=== PATIENT | female | born 1940 | race Caucasian/White ===

== ENCOUNTER 2016-10-04 08:27 | Inpatient (IN) | payer MEDICARE ==
[~2016-10-04] VITALS: Ht 167.6 cm; Wt 63.5 kg
[2016-10-04] VITALS (26 sets, daily range): BP systolic 76–117; BP diastolic 37–84
[2016-10-04 08:40] LABS: HCO3 ABG 7 mmol/L (21-28); PO2 ABG 137 mmHg (65-108); SAT O2 ABG 97 % (92-99)
[2016-10-04 08:42] LABS: PCO2 ABG 19 mmHg (35-46)
[2016-10-04 08:48] LABS: BASO % 0 % (0-3); EOS % 1 % (0-3); HEMATOCRIT 35.1 % (36.0-47.0); HEMOGLOBIN 11.2 g/dL (12.0-15.5); LYMPH # 0.8 x10^3/uL (1.0-4.8); LYMPH % 93 % (24-48); MEAN CORPUSCULAR HEMOGLOBIN 29 pg (25-35); MEAN CORPUSCULAR HGB CONC 32 g/dL (31-37); MEAN CORPUSCULAR VOLUME 92 fL (79-100); MONO % 1 % (0-9); NEUT % 5 % (31-73); PLATELET COUNT 47 x10^3/uL (140-400); RED CELL DISTRIBUTION WIDTH 22.8 % (11.5-14.5)
[2016-10-04 08:52] LABS: WHITE BLOOD COUNT 0.8 x10^3/uL (4.0-11.0)
[2016-10-04 08:56] LABS: CALCIUM 7.3 mg/dL (8.5-10.1); CREATININE 2.9 mg/dL (0.6-1.0); GFR 15.7; POTASSIUM 3.8 mmol/L (3.5-5.1)
--- NOTE | 2016-10-04 08:58 | PHYS DOC ---
Adult General Chief Complaint Chief Complaint: ALTERED MENTAL STATUS HPI HPI Patient is a 76 year old female who presents with altered mental status and diarrhea. According to family she has a history of stage IV lung cancer diagnosed in July and his rent through 3 rounds of chemotherapy. Her last chemotherapy was approximately a week ago. She had some constipation over the last several days and was given MiraLAX partially 2 days ago and the last night started having diarrhea. They gave her Imodium and this morning she had stool in her bed they got her up to take her to the bathroom when she became lethargic. They put her on the toilet and she was unresponsive. EMS was called. They found the patient to be unresponsive and put her on 15 L. She was brought to the ER with tachycardia and tachypnea. Family she is a DNR and does not want to be intubated or have chest compressions performed. She has a past medical history of hypertension, dyslipidemia, lung cancer recently diagnosed with metastatic and vertebral plasty. Review of Systems Review of Systems Able to obtain Current Medications Current Medications Current Medications Medications (Trade) Dose Ordered Sig/Judy Start Time Stop Time Status Last Admin Dose Admin Dextrose/Sodium Chloride (Iv D5% - /2 NS) 1,000 ml @ 125 mls/hr 1X ONCE 10/04/16 12:30 10/04/16 20:29 10/04/16 12:57 125 MLS/HR Fentanyl Citrate (Fentanyl 2ml Vial) 25 mcg 1X ONCE 10/04/16 13:15 10/04/16 13:16 DC 10/04/16 13:06 25 MCG Meropenem 1 gm/ Sodium Chloride 100 ml @ 200 mls/hr 1X ONCE 10/04/16 09:15 10/04/16 09:44 DC 10/04/16 09:14 200 MLS/HR Norepinephrine Bitartrate 8 mg/ Sodium Chloride 258 ml @ 0 mls/hr 1X ONCE 10/04/16 09:00 10/04/16 09:03 DC 10/04/16 09:02 1.9 MLS/HR Sodium Chloride 1,000 ml @ 1,000 mls/hr 1X ONCE 10/04/16 09:15 10/04/16 10:14 DC 10/04/16 08:58 1,000 MLS/HR Allergies Allergies Allergies Coded Allergies Type Severity Reaction Last Updated Verified Penicillins Allergy Intermediate 10/04/16 Yes Sulfa (Sulfonamide Antibiotics) Allergy Intermediate 10/04/16 Yes cholestyramine Allergy Intermediate 10/04/16 Yes morphine Allergy Intermediate 10/04/16 Yes atorvastatin Adverse Reaction Mild UPSETS STOMACH 10/04/16 Yes rosuvastatin Adverse Reaction Mild UPSETS STOMACH 10/04/16 Yes Physical Exam Physical Exam Constitutional: Well developed, well nourished, unresponsive, mild acute distress [] HENT: Normocephalic, atraumatic, bilateral external ears normal, oropharynx moist, no oral exudates, nose normal. [] Eyes: PERRLA, EOMI, conjunctiva normal, no discharge. [] Neck: no stridor. [] Cardiovascular: Tachycardic with regular rhythm, no murmur [] Lungs & Thorax: Bilateral breath sounds clear to auscultation [] Abdomen: Bowel sounds normal, soft, no tenderness, no masses, no pulsatile masses. [] Skin: Warm, dry, no erythema, no rash. [] Back: No tenderness, no CVA tenderness. [] Extremities: No tenderness, no cyanosis, no clubbing, ROM intact, no edema. [] Neurologic: unresponsive Current Patient Data Vital Signs Vital Signs Date Time Temp Pulse Resp B/P Pulse Ox O2 Delivery O2 Flow Rate FiO2 10/04/16 12:15 120 29 106/55 100 Venturi Mask 15 10/04/16 08:27 97.9 97.9 Lab Values Laboratory Tests Test 10/04/16 08:35 10/04/16 09:00 10/04/16 11:50 White Blood Count 0.8x10^3/uL (4.0-11.0) *L Red Blood Count 3.80x10^6/uL (3.50-5.40) Hemoglobin 11.2g/dL (12.0-15.5) L Hematocrit 35.1% (36.0-47.0) L Mean Corpuscular Volume 92fL (79-100) Mean Corpuscular Hemoglobin 29pg (25-35) Mean Corpuscular Hemoglobin Concent 32g/dL (31-37) Red Cell Distribution Width 22.8% (11.5-14.5) H Platelet Count 47x10^3/uL (140-400) L Neutrophils (%) (Auto) 5% (31-73) L Lymphocytes (%) (Auto) 93% (24-48) H Monocytes (%) (Auto) 1% (0-9) Eosinophils (%) (Auto) 1% (0-3) Basophils (%) (Auto) 0% (0-3) Neutrophils # (Auto) 0.0x10^3uL (1.8-7.7) L Lymphocytes # (Auto) 0.8x10^3/uL (1.0-4.8) L Monocytes # (Auto) 0.0x10^3/uL (0.0-1.1) Eosinophils # (Auto) 0.0x10^3/uL (0.0-0.7) Basophils # (Auto) 0.0x10^3/uL (0.0-0.2) Prothrombin Time 15.9SEC (11.7-14.0) H Prothrombin Time INR 1.4 (0.8-1.1) H O2 Saturation 97% (92-99) Arterial Blood pH 7.20 (7.35-7.45) *L Arterial Blood pCO2 at Patient Temp 19mmHg (35-46) *L Arterial Blood pO2 at Patient Temp 137mmHg (65-108) H Arterial Blood HCO3 7mmol/L (21-28) L Arterial Blood Base Excess -19mmol/L (-3-3) L FiO2 100.0 Sodium Level 144mmol/L (136-145) Potassium Level 3.8mmol/L (3.5-5.1) Chloride Level 104mmol/L (98-107) Carbon Dioxide Level 12mmol/L (21-32) L Anion Gap 28 (6-14) H Blood Urea Nitrogen 67mg/dL (7-20) H Creatinine 2.9mg/dL (0.6-1.0) H Estimated GFR (Cockcroft-Gault) 15.7 Glucose Level 137mg/dL (70-99) H Lactic Acid Level 13.2mmol/L (0.4-2.0) *H 3.7mmol/L (0.4-2.0) H Calcium Level 7.3mg/dL (8.5-10.1) L Magnesium Level 1.2mg/dL (1.8-2.4) L Total Bilirubin 0.5mg/dL (0.2-1.0) Direct Bilirubin 0.2mg/dL (0.0-0.2) Aspartate Amino Transferase (AST) 74U/L (15-37) H Alanine Aminotransferase (ALT) 82U/L (14-59) H Alkaline Phosphatase 175U/L (46-116) H Creatine Kinase 54U/L (26-192) Creatine Kinase MB (Mass) 0.9ng/mL (0.0-3.6) Creatine Kinase MB Relative Index % (0-4) Troponin I Quantitative 0.095ng/mL (0.000-0.055) UG-Cas-P-Type Natriuretic Peptide 9753pg/mL (0-449) H Total Protein 5.4g/dL (6.4-8.2) L Albumin 2.7g/dL (3.4-5.0) L Lipase 167U/L (73-393) Thyroid Stimulating Hormone (TSH) 13.741uIU/mL (0.358-3.74) H Influenza Type A Antigen Negative (NEGATIVE) Influenza Type B Antigen Negative (NEGATIVE) Laboratory Tests 10/04/16 08:35 Laboratory Tests 10/04/16 08:35 EKG EKG EKG shows sinus tachycardia with incomplete right bundle-branch block, rate of 119 bpm, no ST elevations or T-wave inversions appreciated, as interpreted by me. Radiology/Procedures Radiology/Procedures [facility] [address] [place] [place] [address] IMAGING REPORT Signed PATIENT: RUTH ANN MARLOW ACCOUNT: [id number] : 1940 LOCATION: ER AGE: 76 SEX: F EXAM STATUS: PRE ER ORD. PHYSICIAN: LESTER HEBERT MD REASON: AMS PROCEDURE: PORTABLE CHEST 1V Portable chest, 10/04/2016: History: Altered mental status A right Port-A-Cath extends to the level of the atriocaval junction. The heart size and pulmonary vascularity are normal. There is calcific plaquing of the aorta. There are mild streaky basilar opacities, more so on the left, suggesting atelectasis and/or scarring. No pleural fluid or pneumothorax is evident. There are vertebral compression fractures at T12 and L1 containing dense material compatible with vertebroplasty cement. IMPRESSION: 1. A right Port-A-Cath is in satisfactory position. 2. Mild bibasilar linear atelectasis and/or scarring, left greater than right. DICTATED and SIGNED BY: TEMITOPE HAMPTON MD DATE: 10/04/16 0856 CC: LESTER HEBERT MD ~ Impressions: Sepsis Hypotension Neutropenia Metastatic lung cancer Course & Med Decision Making Course & Med Decision Making Pertinent Labs and Imaging studies reviewed. (See chart for details) She presented with altered mental status and hypotension and tachypnea. She received 2 L normal saline and Levaquin fed was started to titrate her blood pressure up with a map greater than 60. CT head and chest x-ray did not show any acute abnormalities. She does have a severe lactic acidosis that is metabolic in nature. Family states that her insurance does not cover here I did speak with [facility] admission were she's been hospitalized before and her insurance is accepted at negative except the patient however he did have any ICU beds available. Patient's being admitted to Dr. Rainey at this time in critical condition in the ICU with the understanding of being transferred to [facility] within a bed becomes available. Family is agreeable to this plan. The patient is DNR based on conversations that the brother and sister had with their mom recently. 75 minutes of critical care time was used on this patient excluding procedures. Dragon Disclaimer Dragon Disclaimer This electronic medical record was generated, in whole or in part, using a voice recognition dictation system. Departure Departure Disposition: ADMITTED INPATIENT Admitting Physician: Vijay Go Condition: GUARDED LESTER HEBERT MD Oct 04, 2016 08:58
[2016-10-04 09:00] LABS: INR 1.4 (0.8-1.1); PROTHROMBIN TIME PATIENT 15.9 SEC (11.7-14.0)
[2016-10-04] MEDS ORDERED: NS IV ONE (09:00)
[2016-10-04] MEDS ORDERED: NOREPINEPHRINE IV ONE (09:00)
[2016-10-04] MEDS ORDERED: NOREPINEPHRINE VIAL 8 MG in IV NORMAL SALINE 250ML 250 ML IV ONE (09:00)
--- NOTE | 2016-10-04 09:01 | RAD ---
Portable chest, 10/04/2016: History: Altered mental status A right Port-A-Cath extends to the level of the atriocaval junction. The heart size and pulmonary vascularity are normal. There is calcific plaquing of the aorta. There are mild streaky basilar opacities, more so on the left, suggesting atelectasis and/or scarring. No pleural fluid or pneumothorax is evident. There are vertebral compression fractures at T12 and L1 containing dense material compatible with vertebroplasty cement. IMPRESSION: 1. A right Port-A-Cath is in satisfactory position. 2. Mild bibasilar linear atelectasis and/or scarring, left greater than right.
[2016-10-04 09:03] LABS: ALBUMIN 2.7 g/dL (3.4-5.0); DIRECT BILIRUBIN 0.2 mg/dL (0.0-0.2); MAGNESIUM 1.2 mg/dL (1.8-2.4); TOTAL BILIRUBIN 0.5 mg/dL (0.2-1.0); TOTAL PROTEIN 5.4 g/dL (6.4-8.2)
[2016-10-04 09:09] LABS: CKMB MASS 0.9 ng/mL (0.0-3.6); CREATINE KINASE 54 U/L (26-192)
[2016-10-04] MEDS ORDERED: IV NORMAL SALINE 1000ML BAG 1,000 ML IV SCH (09:15)
[2016-10-04] MEDS ORDERED: MEROPENEM 1 GM in IV NORMAL SALINE 100ML 100 ML IV ONE (09:15)
[2016-10-04] MEDS ORDERED: IV NORMAL SALINE 1000ML BAG 1,000 ML IV ONE ×2 (09:15→16:15)
[2016-10-04 09:39] LABS: OBC FLU VALID
--- NOTE | 2016-10-04 10:01 | RAD ---
PQRS Compliance Statement: One or more of the following individualized dose reduction techniques were utilized for this examination: 1. Automated exposure control 2. Adjustment of the mA and/or kV according to patient size 3. Use of iterative reconstruction technique CT of the head without contrast, 10/04/2016: History: Altered mental status The study is partially compromised by patient motion artifact. The ventricles are within normal limits in size. There is no shift of the midline structures. There is no evidence of acute intracranial hemorrhage or mass effect. There is calcific plaquing of the distal internal carotid and vertebral arteries. IMPRESSION: No acute intracranial abnormality is detected.
--- NOTE | 2016-10-04 10:51 | ACF ---
Admission Forms Criteria MENTAL STATUS CHANGE Clinical Indications for Inpatient Care (Place 'X' for any and all applicable criteria): Ongoing inpatient care may be needed for ANY ONE of the following(1)(2)(3)(5)(6) : [ ]I. Suspected serious etiology (eg, medical disorder, SHANK STITCHER event) of mental status change [ ]II. Danger to self or others not manageable at lower level of care [ ]III. Grave disability (eg, inability to perform self care necessary at lower level of care) [ ]IV. Agitation or inappropriate behavior interfering with care for primary condition (eg, attempting to discontinue lines or drains prematurely, unable to cooperate with respiratory care) [ ]V. Delirium [A] [D][E] as described by ANY ONE of the following(26): [ ]a) Delirium due to alcohol or sedative [F] withdrawal [ ]b) Delirium of uncertain etiology that has not responded to appropriate empiric treatment [ ]c) Delirium that prevents performance of a life-sustaining function (eg, feeding or hydrating oneself) [ ]. General contraindications and/or Inappropriate clinical situations for Observational Care in patients with Mental Status Change, when ANY ONE of the following is required: [ ]a) Prediction of prolongation of LOS based on ANY ONE of the following may be considered as a contraindication for observational care 2, 3, 4, 5, 6, 7, 8, 9, 10, 11 [ ]i) Age > 65 yrs. [ ]ii) Patient arriving by ambulance [ ]iii) Patient with high acuity [ ]iv) Patient requiring vital sign monitoring [ ]v) Patient on IV medication [ ]b) Systolic blood pressures 180mmHg 3,12 [ ]c) Patient with altered mental status including delirium and other alteration of consciousness, (3) [ ]d) Patient whose discharge disposition will be to a [facility] home or rehabilitation home should not be managed in Emergency Department Observation Unit. CMS rule requires 3 days hospital stay before such placement.3,13 [ ]e) Patient with failure to thrive due to broad array of etiologies 3,16,17 [ ]f) Inability to ambulate 3,14 Extended stay beyond goal length of stay for the primary condition may be needed until ALL of the following are present(3)(5): [ ]a) Underlying medical etiology of mental status change is absent, or has been established and adequately treated [ ]b) Danger to self or others is absent or manageable at lower level of care. [ ]c) Behavior crisis management, including physical or chemical restraints, is not required or available at lower level of car [ ]d) Substance or alcohol withdrawal is absent or manageable at lower level of care. [ ]e) Behavioral symptoms (eg, agitation, somnolence, inappropriate behavior) are absent, or are manageable at lower level of care. The original [facility] [employer] content created by [facility] has been revised. The portions of the content which have been revised are identified through the use of italic text or in bold, and [email or web address] has neither reviewed nor approved the modified material. All other unmodified content is copyright [facility]. Please see references footnoted in the original [facility] edition 2016 DEANNA SOLER Oct 04, 2016 10:51
--- NOTE | 2016-10-04 11:00 | EKG ---
[facility] [address] [place] [address] Test Date: 2016-10-04 Test Time: 09:10:26 Pat Name: RUTH ANN MARLOW Department: Room: Gender: F Nonprofit Fundraiser: : 1940 Requested By: LESTER HEBERT Order Number: [id number] Reading MD: Rangel Veronica Measurements Intervals Umpire Rate: 119 P: 47 UT: 106 QRS: 36 QRSD: 122 T: 54 QT: 346 QTc: 494 Interpretive Statements SINUS TACHYCARDIA INCOMPLETE RIGHT BUNDLE BRANCH BLOCK RVH WITH REPOLARIZATION ABNORMALITY NONSPECIFIC ST-T WAVE CHANGES. RI6.01 Unconfirmed report No previous ECG available for comparison Electronically Signed On 10-09-2016 13:34:12 LACING STRING CUTTER by Rangel Veronica
[2016-10-04] MEDS ORDERED: IV DEXTROSE 5 %-0.45 % NACL 1,000 ML IV ONE (12:30)
[2016-10-04] MEDS ORDERED: FENTANYL PF 100 MCG/2 ML VIAL. IV ONE (13:15)
[2016-10-04] MEDS ORDERED: ONDANSETRON PF 4 MG/2 ML VIAL. ONE (14:12)
[2016-10-04] MEDS: NOREPINEPHRINE VIAL 8 MG in IV NORMAL SALINE 250ML 250 ML IV PRN (15:10)
[2016-10-04] MEDS ORDERED: ORPH100T PO (15:42)
[2016-10-04] MEDS ORDERED: ALLO300T PO (15:42)
[2016-10-04] MEDS ORDERED: ALPR0.5T PO (15:42)
[2016-10-04] MEDS ORDERED: TRAM50TA PO (15:42)
[2016-10-04] MEDS ORDERED: MIRT15TA3 PO (15:42)
[2016-10-04] MEDS ORDERED: PANT40TA3 PO (15:42)
[2016-10-04] MEDS ORDERED: ASPI81TA44 PO (15:43)
[2016-10-04] MEDS: ONDANSETRON PF 4 MG/2 ML VIAL. IV PRN ×2 (15:59→22:02)
[2016-10-04 16:28] LABS: BILIRUBIN,URINE NEGATIVE (NEG); GLUCOSE,URINE NEGATIVE (NEG); NITRITE,URINE NEGATIVE (NEG); PH,URINE 5.5; PROTEIN,URINE 30 mg/dL (NEG-TRACE); UROBILINOGEN,URINE 0.2 mg/dL (0.2 mg/dL)
[2016-10-04] MEDS ORDERED: MAGNESIUM SULFATE 4GM 100 ML IV ONE (16:30)
--- NOTE | 2016-10-04 16:33 | PDOC ---
Provider Note Provider Note Onc consult dictated- [id number] Extensive SCLC with osseous mets s/p Cycle 3 palliative cisplatin/ etoposide . Positive response on scans after Cycle 2 but poor tolerance to chemo. Neutropenic fever, severe sepsis Plan: - Pt out of network here, has bed at [facility], planning to transfer [facility]. - Defer goals of care discussion to her oncologist, Dr. Flynn, who will round on her there - Continue IVF, abx, supportive care. - Added granix - Transfuse for hgb < 7, plt <10 Dr. Flynn aware. PEÑA BATISTA DO Oct 04, 2016 16:32
--- NOTE | 2016-10-04 16:36 | PDOC2 ---
CARDIAC CONSULT DATE OF CONSULT Date of Consult DATE: 10/04/16 TIME: 16:24 REASON FOR CONSULT Reason for Consult: CHF REFERRING PHYSICIAN Referring Physician: Donavan SOURCE Source: Caregiver (son), Chart review HISTORY OF PRESENT ILLNESS HISTORY OF PRESENT ILLNESS This is a 76 yo female admitted for noted altered mental status. Upon admission she has been noted with respiratory failure, renals failure, sepsis and hypotension. She is currently lethargic and shivering. She lives at home with her daughter and with current decreased mental state she is not able to provide with symptoms details. However, her son is in the room and provided me with the events that transpired. Last week she had her 3rd dose of chemo for her SCLC stage 4 and actually was noted that her CA is shrinking. This was identified accidentally via treatement of back pain via vertebroplasty in Jul 2016 and was noted with metastatic lung CA. She has not been routinely going to any physician prior to the discovery of her CA. No prior cardiac workup, no hx of CAD, CVA, VTE. The chemo drug is unknown at this time. No life expectancy was discussed. She has been noted with SOA in the last few days but no significant distress till today. She has been anorexic, no appetite, poor po hydrations, and has been having diarrhea. She has been noted with respiratory distress upon EMS arrival and unresponsive. No noted symptoms of chest pain nor palpitations. To note per her son she has been healthy and active prior to her discovery of CA. PAST MEDICAL HISTORY Cardiovascular: HTN, Hyperlipidemia Pulmonary: Other (Stage 4 lung CA with mets with chemo diagnosed 07/2016) CENTRAL NERVOUS SYSTEM: Other (No pertinent history) GI: GERD Psych: Anxiety Musculoskeletal: Osteoarthritis PAST SURGICAL HISTORY Past Surgical History: Other (right chest portacath; vertebroplasty) FAMILY HISTORY Family History: Coronary Artery Disease (father) SOCIAL HISTORY Smoke: No ALCOHOL: none Drugs: None Lives: with Family CURRENT MEDICATIONS CURRENT MEDICATIONS Current Medications Medications (Trade) Dose Ordered Sig/Judy Route PRN Reason Start Time Stop Time Status Last Admin Dose Admin Sodium Chloride 1,000 ml @ 1,000 mls/hr Q1H IV 10/04/16 09:15 10/04/16 10:14 DC 10/04/16 08:27 Sodium Chloride 1,000 ml @ 1,000 mls/hr 1X ONCE IV 10/04/16 09:15 10/04/16 10:14 DC 10/04/16 08:58 Norepinephrine Bitartrate 8 mg/ Sodium Chloride 258 ml @ 0 mls/hr 1X ONCE IV 10/04/16 09:00 10/04/16 09:03 DC 10/04/16 09:02 Meropenem 1 gm/ Sodium Chloride 100 ml @ 200 mls/hr 1X ONCE IV 10/04/16 09:15 10/04/16 09:44 DC 10/04/16 09:14 Dextrose/Sodium Chloride (Iv D5% - 1/2 NS) 1,000 ml @ 125 mls/hr 1X ONCE IV 10/04/16 12:30 10/04/16 20:29 10/04/16 12:57 Fentanyl Citrate (Fentanyl 2ml Vial) 25 mcg 1X ONCE IV 10/04/16 13:15 10/04/16 13:16 DC 10/04/16 13:06 Ondansetron HCl 4 mg 4 mg PRN Q6HRS PRN IV NAUSEA/VOMITING 10/04/16 15:45 10/04/16 15:59 Sodium Chloride (Iv Sodium Chloride 0.9% 1000ml Bag) 1,000 ml @ 1,000 mls/hr 1X ONCE IV 10/04/16 16:15 10/04/16 17:14 10/04/16 15:59 ALLERGIES ALLERGIES: Coded Allergies: Penicillins (Verified Allergy, Intermediate, 10/04/16) Sulfa (Sulfonamide Antibiotics) (Verified Allergy, Intermediate, 10/04/16) cholestyramine (Verified Allergy, Intermediate, 10/04/16) morphine (Verified Allergy, Intermediate, 10/04/16) atorvastatin (Verified Adverse Reaction, Mild, UPSETS STOMACH, 10/04/16) rosuvastatin (Verified Adverse Reaction, Mild, UPSETS STOMACH, 10/04/16) ROS Review of System unreliable, see HPI PHYSICAL EXAM General: moderate distress (having shivers) HEENT: Atraumatic Lungs: Clear to auscultation Heart: Regular rate (sinus tachycardia), Normal S1, Normal S2, Other (3/6 systolic murmur to LLS border) Abdomen: Soft, No tenderness, Other (rectal tube in place) Extremities: Other (trace LE edema; pale) Skin: No breakdown, No significant lesion Neuro: Sensation intact Psych/Mental Status: Other (lethargic) MUSCULOSKELETAL: Osteoarthritic changes both hands VITALS VITALS Vital Signs Date Time Temp Pulse Resp B/P Pulse Ox O2 Delivery O2 Flow Rate FiO2 10/04/16 15:26 98.5 125 95/52 94 Nasal Cannula 2.0 98.5 10/04/16 12:15 29 LABS Lab: Laboratory Tests Test 10/04/16 08:35 10/04/16 09:00 10/04/16 11:50 10/04/16 15:10 White Blood Count 0.8x10^3/uL (4.0-11.0) Red Blood Count 3.80x10^6/uL (3.50-5.40) Hemoglobin 11.2g/dL (12.0-15.5) Hematocrit 35.1% (36.0-47.0) Mean Corpuscular Volume 92fL (79-100) Mean Corpuscular Hemoglobin 29pg (25-35) Mean Corpuscular Hemoglobin Concent 32g/dL (31-37) Red Cell Distribution Width 22.8% (11.5-14.5) Platelet Count 47x10^3/uL (140-400) Neutrophils (%) (Auto) 5% (31-73) Lymphocytes (%) (Auto) 93% (24-48) Monocytes (%) (Auto) 1% (0-9) Eosinophils (%) (Auto) 1% (0-3) Basophils (%) (Auto) 0% (0-3) Neutrophils # (Auto) 0.0x10^3uL (1.8-7.7) Lymphocytes # (Auto) 0.8x10^3/uL (1.0-4.8) Monocytes # (Auto) 0.0x10^3/uL (0.0-1.1) Eosinophils # (Auto) 0.0x10^3/uL (0.0-0.7) Basophils # (Auto) 0.0x10^3/uL (0.0-0.2) Prothrombin Time 15.9SEC (11.7-14.0) Prothromb Time International Ratio 1.4 (0.8-1.1) O2 Saturation 97% (92-99) Arterial Blood pH 7.20 (7.35-7.45) Arterial Blood pCO2 at Patient Temp 19mmHg (35-46) Arterial Blood pO2 at Patient Temp 137mmHg (65-108) Arterial Blood HCO3 7mmol/L (21-28) Arterial Blood Base Excess -19mmol/L (-3-3) FiO2 100.0 Sodium Level 144mmol/L (136-145) Potassium Level 3.8mmol/L (3.5-5.1) Chloride Level 104mmol/L (98-107) Carbon Dioxide Level 12mmol/L (21-32) Anion Gap 28 (6-14) Blood Urea Nitrogen 67mg/dL (7-20) Creatinine 2.9mg/dL (0.6-1.0) Estimated GFR (Cockcroft-Gault) 15.7 Glucose Level 137mg/dL (70-99) Lactic Acid Level 13.2mmol/L (0.4-2.0) 3.7mmol/L (0.4-2.0) 3.7mmol/L (0.4-2.0) Calcium Level 7.3mg/dL (8.5-10.1) Magnesium Level 1.2mg/dL (1.8-2.4) Total Bilirubin 0.5mg/dL (0.2-1.0) Direct Bilirubin 0.2mg/dL (0.0-0.2) Aspartate Amino Transf (AST/SGOT) 74U/L (15-37) Alanine Aminotransferase (ALT/SGPT) 82U/L (14-59) Alkaline Phosphatase 175U/L (46-116) Creatine Kinase 54U/L (26-192) Creatine Kinase MB (Mass) 0.9ng/mL (0.0-3.6) Creatine Kinase MB Relative Index % (0-4) Troponin I Quantitative 0.095ng/mL (0.000-0.055) 0.463ng/mL (0.000-0.055) JI-Ffh-F-Type Natriuretic Peptide 9753pg/mL (0-449) Total Protein 5.4g/dL (6.4-8.2) Albumin 2.7g/dL (3.4-5.0) Lipase 167U/L (73-393) Thyroid Stimulating Hormone (TSH) 13.741uIU/mL (0.358-3.74) Influenza Type A Antigen Negative (NEGATIVE) Influenza Type B Antigen Negative (NEGATIVE) ASSESSMENT/PLAN ASSESSMENT/PLAN 1. Sepsis: pneumonia? 2. Pancytopenia 3. Acute respiratory failure 4. Hypoxic encephalopathy 5. EPHRAIM: significant volume depletion 6. Stage 4 lung CA with chemotherapy with noted Metastasis: no noted life expectancy 7. Elevated troponin: now at 0.46, suspect demand mediated with above concurrent acute conditions 8. Elevated pro NT BNP: related to above. Clinically no acute CHF. No cephalization/effusion/nor peripheral edema 9. Some form of cardiomyopathy maybe expected which could be chemo induced 9. HTN 9. Hypothyroidism: new? TSH 13 10. Hypomagnesemia 11. Deconditioning/debility 12. Sinus tachycardia: reactive Recommendations 1. Replace Mg. 2. Continue with supportive care 3. TTE if pt remains to be here as plans for her to transfer to [facility] is in process, just waiting for bed. 4. Maintain levo, IV hydration 5. Hold antiHTN meds. Problems: RACHEL RENEE APRN Oct 04, 2016 16:36
[2016-10-04] MEDS: FENTANYL PF 100 MCG/2 ML VIAL. IV PRN ×3 (16:39→22:03)
[2016-10-04 16:44] LABS: BACTERIA,URINE 0 /HPF (0-FEW); RBC,URINE 0 /HPF (0-2); WBC,URINE 0 /HPF (0-4); YEAST,URINE PRESENT /HPF
[2016-10-04] MEDS ORDERED: VANCOMYCIN 1.25 GM in IV NORMAL SALINE 250ML 250 ML IV ONE (17:00)
--- NOTE | 2016-10-04 17:37 | ACF ---
Admission Forms Criteria SEPSIS and OTHER FEBRILE ILLNESS, W/O FOCAL INFECTION Clinical Indications for Admission to Inpatient Care ( Place 'X' for any and all applicable criteria): Admission is indicated for ANY ONE of the following (1)(2)(3)(4): [ ] I. Bacteremia [ ]II. Suspected or identified specific infection requiring hospitalization (eg, meningitis, endocarditis) [ ]III. Hemodynamic instability [X]IV. Altered mental status [ ]V. Failure or unavailability of outpatient antimicrobial treatment [ ]. Hypoxemia [ ]VII. Seizures [ ]VIII. High-risk febrile neutropenia [ ]IX. Need for parenteral antibiotic in patient who is likely to abuse vascular access device (eg, injection drug user) [A](7) [ ]X. Temperature greater than 104.9 degrees F (40.5 degrees C) (oral) [ ]XI. Inpatient admission required rather than observation care because of ANY ONE of the following: [ ]1) Specific infection identified that is too severe for outpatient treatment or observation care trial [ ]2) Metabolic disorder (eg, hypoglycemia, hyperglycemia, metabolic acidosis) that is severe or persistent [ ]3) Temperature greater than 103.1 degrees F (39.5 degrees C) ( oral) that is not responsive to observation care treatment [ ]4) IV fluid to replace significant ongoing (eg, for over 24 hours) losses (> 3 L/m2 per day) [ ]5) Supplemental oxygen or respiratory treatments for over 24 hours that is performable only in acute inpatient setting [ ]6) Parenteral nutrition regimen need that must be implemented on inpatient basis [ ]7) Strict or protective (eg, laminar flow) isolation [ ]8) Other condition, treatment or monitoring requiring inpatient admission Extended stay beyond goal length of stay may be needed for(1)(3) [ ]a) Sepsis or septic shock(22) [ ]b) Positive blood cultures [ ]c) Insufficient oral intake [ ]d) High-risk febrile neutropenia(29)(30) [ ]e) Continued fever and clinical instability [ ]f) Clinically active comorbid illness (e.g,heart failure, renal failure , diabetes) The original [employer] content created by Machelle Aviles has been revised. The portions of the content which have been revised are identified through the use of italic text or in bold, and Machelle Aviles has neither reviewed nor approved the modified material. All other unmodified content is copyright [facility]. Please see references footnoted in the original [facility] edition 2016 Admission Criteria Met?: Yes DEANNA SOLER Oct 04, 2016 17:37
[2016-10-04] MEDS: MICAFUNGIN 100 MG in IV DEXTROSE 5% 100 ML IV SCH (17:57)
[2016-10-04] MEDS: PROCHLORPERAZINE 10 MG/2 ML VIAL. IV PRN (19:41)
[2016-10-04] MEDS ORDERED: TBO-FILGRASTIM 300 MCG/0.5 ML SYRINGE. SQ SCH (21:00)
[2016-10-04] MEDS: MEROPENEM 1 GM in IV NORMAL SALINE 100ML 100 ML IV SCH (21:43)
[2016-10-04] MEDS: METRONIDAZOLE 500mg PREMIX 100 ML IV SCH (22:33)
[2016-10-05] VITALS (26 sets, daily range): BP systolic 77–154; BP diastolic 48–82
[2016-10-05] MEDS: NOREPINEPHRINE VIAL 8 MG in IV NORMAL SALINE 250ML 250 ML IV PRN ×2 (00:12→11:41)
[2016-10-05] MEDS: FENTANYL PF 100 MCG/2 ML VIAL. IV PRN ×2 (00:16→04:25)
[2016-10-05] MEDS: ONDANSETRON PF 4 MG/2 ML VIAL. IV PRN ×3 (04:24→15:45)
[2016-10-05] MEDS: METRONIDAZOLE 500mg PREMIX 100 ML IV SCH (05:39)
[2016-10-05 06:16] LABS: CREATININE 2.2 mg/dL (0.6-1.0); GFR 21.6
[2016-10-05 06:18] LABS: CALCIUM 5.7 mg/dL (8.5-10.1)
[2016-10-05 06:19] LABS: POTASSIUM 2.8 mmol/L (3.5-5.1)
[2016-10-05 06:38] LABS: BASO % 0 % (0-3); EOS % 3 % (0-3); HEMATOCRIT 27.2 % (36.0-47.0); HEMOGLOBIN 9.3 g/dL (12.0-15.5); LYMPH # 0.1 x10^3/uL (1.0-4.8); LYMPH % 68 % (24-48); MEAN CORPUSCULAR HEMOGLOBIN 29 pg (25-35); MEAN CORPUSCULAR HGB CONC 34 g/dL (31-37); MEAN CORPUSCULAR VOLUME 86 fL (79-100); MONO % 12 % (0-9); NEUT % 18 % (31-73); RED BLOOD COUNT 3.15 x10^6/uL (3.50-5.40); RED CELL DISTRIBUTION WIDTH 21.6 % (11.5-14.5)
[2016-10-05 06:42] LABS: WHITE BLOOD COUNT 0.1 x10^3/uL (4.0-11.0)
[2016-10-05 06:43] LABS: PLATELET COUNT 11 x10^3/uL (140-400)
[2016-10-05] MEDS ORDERED: CALCIUM GLUCONATE 2,000 MG in IV NORMAL SALINE 100ML 100 ML IV ONE (07:00)
[2016-10-05] MEDS ORDERED: VANCOMYCIN PER PHARMACY MC PRN (07:45)
--- NOTE | 2016-10-05 07:54 | PDOC ---
Infectious Disease Note ROS ROS GEN: Denies fevers, chills, sweats HEENT: Denies blurred vision, sore throat CV: Denies chest pain RESP: Denies shortness of air, cough GI: Denies n/v/d NEURO: Denies confusion, dizziness MSK: Denies weakness, joint pain/swelling Vital Sign Vital Signs Vital Signs Date Time Temp Pulse Resp B/P Pulse Ox O2 Delivery O2 Flow Rate FiO2 10/05/16 06:00 123 27 93/65 100 Room Air 10/05/16 04:25 4.0 10/05/16 04:00 100.6 100.6 Physical Exam PHYSICAL EXAM GENERAL: NAD, Alert HEENT: PERRL, OC/OP NECK: Supple, no JVD, no LN LUNGS: Clear HEART: S1S2, no gallop, no murmur ABD: Soft, NT, no organomegaly, no rebound EXT: No edema, no cyanosis DIRECTOR OF CATH LAB: Alert, oriented x 3, no focal neurologic deficit SKIN: No rash IV: ok Labs Lab Laboratory Tests Test 10/04/16 08:35 10/04/16 09:00 10/04/16 11:50 10/04/16 13:45 White Blood Count 0.8x10^3/uL (4.0-11.0) Red Blood Count 3.80x10^6/uL (3.50-5.40) Hemoglobin 11.2g/dL (12.0-15.5) Hematocrit 35.1% (36.0-47.0) Mean Corpuscular Volume 92fL (79-100) Mean Corpuscular Hemoglobin 29pg (25-35) Mean Corpuscular Hemoglobin Concent 32g/dL (31-37) Red Cell Distribution Width 22.8% (11.5-14.5) Platelet Count 47x10^3/uL (140-400) Neutrophils (%) (Auto) 5% (31-73) Lymphocytes (%) (Auto) 93% (24-48) Monocytes (%) (Auto) 1% (0-9) Eosinophils (%) (Auto) 1% (0-3) Basophils (%) (Auto) 0% (0-3) Neutrophils # (Auto) 0.0x10^3uL (1.8-7.7) Lymphocytes # (Auto) 0.8x10^3/uL (1.0-4.8) Monocytes # (Auto) 0.0x10^3/uL (0.0-1.1) Eosinophils # (Auto) 0.0x10^3/uL (0.0-0.7) Basophils # (Auto) 0.0x10^3/uL (0.0-0.2) Prothrombin Time 15.9SEC (11.7-14.0) Prothromb Time International Ratio 1.4 (0.8-1.1) O2 Saturation 97% (92-99) Arterial Blood pH 7.20 (7.35-7.45) Arterial Blood pCO2 at Patient Temp 19mmHg (35-46) Arterial Blood pO2 at Patient Temp 137mmHg (65-108) Arterial Blood HCO3 7mmol/L (21-28) Arterial Blood Base Excess -19mmol/L (-3-3) FiO2 100.0 Sodium Level 144mmol/L (136-145) Potassium Level 3.8mmol/L (3.5-5.1) Chloride Level 104mmol/L (98-107) Carbon Dioxide Level 12mmol/L (21-32) Anion Gap 28 (6-14) Blood Urea Nitrogen 67mg/dL (7-20) Creatinine 2.9mg/dL (0.6-1.0) Estimated GFR (Cockcroft-Gault) 15.7 Glucose Level 137mg/dL (70-99) Lactic Acid Level 13.2mmol/L (0.4-2.0) 3.7mmol/L (0.4-2.0) Calcium Level 7.3mg/dL (8.5-10.1) Magnesium Level 1.2mg/dL (1.8-2.4) Total Bilirubin 0.5mg/dL (0.2-1.0) Direct Bilirubin 0.2mg/dL (0.0-0.2) Aspartate Amino Transf (AST/SGOT) 74U/L (15-37) Alanine Aminotransferase (ALT/SGPT) 82U/L (14-59) Alkaline Phosphatase 175U/L (46-116) Creatine Kinase 54U/L (26-192) Creatine Kinase MB (Mass) 0.9ng/mL (0.0-3.6) Creatine Kinase MB Relative Index % (0-4) Troponin I Quantitative 0.095ng/mL (0.000-0.055) PN-Qfd-L-Type Natriuretic Peptide 9753pg/mL (0-449) Total Protein 5.4g/dL (6.4-8.2) Albumin 2.7g/dL (3.4-5.0) Lipase 167U/L (73-393) Thyroid Stimulating Hormone (TSH) 13.741uIU/mL (0.358-3.74) Influenza Type A Antigen Negative (NEGATIVE) Influenza Type B Antigen Negative (NEGATIVE) Clostridium difficile Toxin (PCR) Negative (Negative) Test 10/04/16 15:10 10/04/16 15:55 10/04/16 16:00 10/04/16 20:30 Lactic Acid Level 3.7mmol/L (0.4-2.0) 1.4mmol/L (0.4-2.0) Troponin I Quantitative 0.463ng/mL (0.000-0.055) 0.506ng/mL (0.000-0.055) Urine Collection Type Unknown Urine Color Yellow Urine Clarity Clear Urine pH 5.5 Urine Specific [place] 1.015 Urine Protein 30mg/dL (NEG-TRACE) Urine Glucose (UA) Negativemg/dL (NEG) Urine Ketones (Stick) Negativemg/dL (NEG) Urine Blood Small (NEG) Urine Nitrite Negative (NEG) Urine Bilirubin Negative (NEG) Urine Urobilinogen Dipstick 0.2mg/dL (0.2 mg/dL) Urine Leukocyte Esterase Negative (NEG) Urine RBC 0/HPF (0-2) Urine WBC 0/HPF (0-4) Urine Bacteria 0/HPF (0-FEW) Urine Yeast Present/HPF Nasal Screen MRSA (PCR) Positive (Negative) Test 10/05/16 05:40 10/05/16 06:30 Sodium Level 144mmol/L (136-145) Potassium Level 2.8mmol/L (3.5-5.1) Chloride Level 111mmol/L (98-107) Carbon Dioxide Level 17mmol/L (21-32) Anion Gap 16 (6-14) Blood Urea Nitrogen 59mg/dL (7-20) Creatinine 2.2mg/dL (0.6-1.0) Estimated GFR (Cockcroft-Gault) 21.6 Glucose Level 112mg/dL (70-99) Calcium Level 5.7mg/dL (8.5-10.1) White Blood Count 0.1x10^3/uL (4.0-11.0) Red Blood Count 3.15x10^6/uL (3.50-5.40) Hemoglobin 9.3g/dL (12.0-15.5) Hematocrit 27.2% (36.0-47.0) Mean Corpuscular Volume 86fL (79-100) Mean Corpuscular Hemoglobin 29pg (25-35) Mean Corpuscular Hemoglobin Concent 34g/dL (31-37) Red Cell Distribution Width 21.6% (11.5-14.5) Platelet Count 11x10^3/uL (140-400) Neutrophils (%) (Auto) 18% (31-73) Lymphocytes (%) (Auto) 68% (24-48) Monocytes (%) (Auto) 12% (0-9) Eosinophils (%) (Auto) 3% (0-3) Basophils (%) (Auto) 0% (0-3) Neutrophils # (Auto) 0.0x10^3uL (1.8-7.7) Lymphocytes # (Auto) 0.1x10^3/uL (1.0-4.8) Monocytes # (Auto) 0.0x10^3/uL (0.0-1.1) Eosinophils # (Auto) 0.0x10^3/uL (0.0-0.7) Basophils # (Auto) 0.0x10^3/uL (0.0-0.2) Objective Assessment Sepsis - POA on 10 of levophed. Lactic better Fever - ? Infection vs Med Pancytopenia - on Granix EPHRAIM - better Stage 4 lung CA s/p chemo 09/25 ? Exposure to C-diff - C-diff here neg PCN/sulfa allergy - hives + MRSA screen Plan Plan of Care Added Micafungin/Flagyl and Vanc 10/04 Cont Meropenem Redose Vanc given renal function improvement D/c Flagyl today with neg C-diff F/u labs in am if here and cults Reviewed records and some [facility] records Await transfer to [facility] Critically ill 35 min CC time Thank you # [id number] SALMA RADFORD MD Oct 05, 2016 07:54
[2016-10-05] MEDS: PROCHLORPERAZINE 10 MG/2 ML VIAL. IV PRN ×2 (08:15→19:39)
--- NOTE | 2016-10-05 08:21 | HP ---
ADMIT DATE: 10/04/2016 CHIEF COMPLAINT: Near syncope, dehydration, recent chemotherapy, nausea, vomiting, diarrhea, intermittent constipation, overall post-chemo failure to thrive. HISTORY OF PRESENT ILLNESS: The patient is a pleasant elderly female who was diagnosed with lung cancer several months ago. She was treated with chemotherapy. Her last therapy was a week or so ago. Since then, she has been having intermittent diarrhea and constipation. She has been getting weaker. This morning, they put her on the toilet and she passed out. EMS was called. She was brought to the ER where she is on 15 liters of oxygen. She is tachycardic. Her white count is 0.8. We suspect she might be septic. I discussed the case with the ER physician. She originally was going to go to [facility] for insurance reasons, but apparently they do not have beds. We are going to admit the patient to our ICU. I am going to consult Infectious Disease and Hematology/Oncology. PAST MEDICAL HISTORY: The above-mentioned lung cancer and chemotherapy. ALLERGIES: PENICILLIN, SULFA, ATORVASTATIN, CHOLESTYRAMINE, MORPHINE AND ROSUVASTATIN. FAMILY HISTORY: Diabetes. SOCIAL HISTORY: She quit smoking, no drinking or drugs. MEDICATIONS: Reviewed, please refer to the [facility]AD. REVIEW OF SYSTEMS: Unobtainable, the patient is too weak to talk. PHYSICAL EXAMINATION: VITAL SIGNS: Temperature 97.9, pulse 130, respirations 30, blood pressure 76/48. GENERAL: She is awake, moaning, very sick. I am concerned she could be dying, but her son is present. He is very reasonable. It should be noted that the patient is DNR. HEART: Tachy, S1, S2. LUNGS: Coarse. ABDOMEN: Soft, decreased bowel sounds. EXTREMITIES: 1+ edema. SKIN: No rashes. PSYCHIATRIC: She is depressed. VASCULAR: Good capillary refill. ENDOCRINE: No thyromegaly. LYMPHATICS: No cervical nodes. HEMATOPOIETIC: No bruising. LABORATORY DATA: White count 0.8, hemoglobin 11.2, platelets 22.8. Electrolytes: Sodium 144, potassium 3.8, chloride 104, bicarb 12, BUN 67, creatinine 2.9, glucose 137. Lactic acid high at 13.2. BNP 9753. Troponin 0.095. TSH 13.741. IMAGING: Chest x-ray shows right Port-A-Cath and mid basilar linear atelectasis and/or scarring. CT of the head negative. ASSESSMENT AND PLAN: Probable sepsis after chemotherapy in an elderly female who has lung cancer. I am concerned about her long-term prognosis. She is do not resuscitate and I certainly will follow her wishes. For now, I am going to give her IV antibiotics and consult Infectious Disease. She also has renal failure. Will consult Nephrology. 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 Will consult Cardiology. Consult Hem/Onc. Resume home medicines, IV fluids, ICU monitoring, serial enzymes, serial EKGs. Repeat her labs frequently, p.r.n. antiemetics. PROGNOSIS: Extremely guarded at best. SHAHRAM WILSON DO DR: BESSY/whitney JOB#: [id number] / [id number]
[2016-10-05] MEDS: POTASSIUM CHLORIDE 20MEQ 50 ML IV SCH ×3 (08:27→10:31)
[2016-10-05] MEDS: MEROPENEM 1 GM in IV NORMAL SALINE 100ML 100 ML IV SCH (09:37)
--- NOTE | 2016-10-05 09:58 | PDOC ---
PROGRESS NOTES Subjective Subjective c/c- f/u of Extensive SCLC with osseous mets Objective Objective Vital Signs Date Time Temp Pulse Resp B/P Pulse Ox O2 Delivery O2 Flow Rate FiO2 10/05/16 06:00 123 27 93/65 100 Room Air 10/05/16 04:25 4.0 10/05/16 04:00 100.6 100.6 Intake and Output 10/05/16 07:00 Intake Total 4631 ml Output Total 1910 ml Balance 2721 ml Intake IV Total 4631 ml Output Urine Total 1910 ml Physical Exam Heart: Normal S1, Normal S2 Lungs: Clear to auscultation Assessment Assessment Problems Medical Problems: (1) Hypotension Status: Acute A/P: 1. Extensive SCLC with osseous mets s/p Cycle 3 palliative cisplatin/ etoposide 09/25/16. Positive response on scans after Cycle 2 but poor tolerance to chemo. 2. Neutropenic fever, severe sepsis - on granix. Appreciate ID management. 3. Thrombocytopenia, worse at 11, transfuse platelets in view of sepsis. I d/w family I d/w RN Comment Review of Relevant I have reviewed the following items montserrat (where applicable) has been applied. Labs Laboratory Tests Test 10/04/16 08:35 10/04/16 09:00 10/04/16 11:50 10/04/16 13:45 White Blood Count 0.8x10^3/uL (4.0-11.0) Red Blood Count 3.80x10^6/uL (3.50-5.40) Hemoglobin 11.2g/dL (12.0-15.5) Hematocrit 35.1% (36.0-47.0) Mean Corpuscular Volume 92fL (79-100) Mean Corpuscular Hemoglobin 29pg (25-35) Mean Corpuscular Hemoglobin Concent 32g/dL (31-37) Red Cell Distribution Width 22.8% (11.5-14.5) Platelet Count 47x10^3/uL (140-400) Neutrophils (%) (Auto) 5% (31-73) Lymphocytes (%) (Auto) 93% (24-48) Monocytes (%) (Auto) 1% (0-9) Eosinophils (%) (Auto) 1% (0-3) Basophils (%) (Auto) 0% (0-3) Neutrophils # (Auto) 0.0x10^3uL (1.8-7.7) Lymphocytes # (Auto) 0.8x10^3/uL (1.0-4.8) Monocytes # (Auto) 0.0x10^3/uL (0.0-1.1) Eosinophils # (Auto) 0.0x10^3/uL (0.0-0.7) Basophils # (Auto) 0.0x10^3/uL (0.0-0.2) Prothrombin Time 15.9SEC (11.7-14.0) Prothromb Time International Ratio 1.4 (0.8-1.1) O2 Saturation 97% (92-99) Arterial Blood pH 7.20 (7.35-7.45) Arterial Blood pCO2 at Patient Temp 19mmHg (35-46) Arterial Blood pO2 at Patient Temp 137mmHg (65-108) Arterial Blood HCO3 7mmol/L (21-28) Arterial Blood Base Excess -19mmol/L (-3-3) FiO2 100.0 Sodium Level 144mmol/L (136-145) Potassium Level 3.8mmol/L (3.5-5.1) Chloride Level 104mmol/L (98-107) Carbon Dioxide Level 12mmol/L (21-32) Anion Gap 28 (6-14) Blood Urea Nitrogen 67mg/dL (7-20) Creatinine 2.9mg/dL (0.6-1.0) Estimated GFR (Cockcroft-Gault) 15.7 Glucose Level 137mg/dL (70-99) Lactic Acid Level 13.2mmol/L (0.4-2.0) 3.7mmol/L (0.4-2.0) Calcium Level 7.3mg/dL (8.5-10.1) Magnesium Level 1.2mg/dL (1.8-2.4) Total Bilirubin 0.5mg/dL (0.2-1.0) Direct Bilirubin 0.2mg/dL (0.0-0.2) Aspartate Amino Transf (AST/SGOT) 74U/L (15-37) Alanine Aminotransferase (ALT/SGPT) 82U/L (14-59) Alkaline Phosphatase 175U/L (46-116) Creatine Kinase 54U/L (26-192) Creatine Kinase MB (Mass) 0.9ng/mL (0.0-3.6) Creatine Kinase MB Relative Index % (0-4) Troponin I Quantitative 0.095ng/mL (0.000-0.055) DD-Ubk-L-Type Natriuretic Peptide 9753pg/mL (0-449) Total Protein 5.4g/dL (6.4-8.2) Albumin 2.7g/dL (3.4-5.0) Lipase 167U/L (73-393) Thyroid Stimulating Hormone (TSH) 13.741uIU/mL (0.358-3.74) Influenza Type A Antigen Negative (NEGATIVE) Influenza Type B Antigen Negative (NEGATIVE) Clostridium difficile Toxin (PCR) Negative (Negative) Test 10/04/16 15:10 10/04/16 15:55 10/04/16 16:00 10/04/16 20:30 Lactic Acid Level 3.7mmol/L (0.4-2.0) 1.4mmol/L (0.4-2.0) Troponin I Quantitative 0.463ng/mL (0.000-0.055) 0.506ng/mL (0.000-0.055) Urine Collection Type Unknown Urine Color Yellow Urine Clarity Clear Urine pH 5.5 Urine Specific [place] 1.015 Urine Protein 30mg/dL (NEG-TRACE) Urine Glucose (UA) Negativemg/dL (NEG) Urine Ketones (Stick) Negativemg/dL (NEG) Urine Blood Small (NEG) Urine Nitrite Negative (NEG) Urine Bilirubin Negative (NEG) Urine Urobilinogen Dipstick 0.2mg/dL (0.2 mg/dL) Urine Leukocyte Esterase Negative (NEG) Urine RBC 0/HPF (0-2) Urine WBC 0/HPF (0-4) Urine Bacteria 0/HPF (0-FEW) Urine Yeast Present/HPF Nasal Screen MRSA (PCR) Positive (Negative) Test 10/05/16 05:40 10/05/16 06:30 Sodium Level 144mmol/L (136-145) Potassium Level 2.8mmol/L (3.5-5.1) Chloride Level 111mmol/L (98-107) Carbon Dioxide Level 17mmol/L (21-32) Anion Gap 16 (6-14) Blood Urea Nitrogen 59mg/dL (7-20) Creatinine 2.2mg/dL (0.6-1.0) Estimated GFR (Cockcroft-Gault) 21.6 Glucose Level 112mg/dL (70-99) Calcium Level 5.7mg/dL (8.5-10.1) White Blood Count 0.1x10^3/uL (4.0-11.0) Red Blood Count 3.15x10^6/uL (3.50-5.40) Hemoglobin 9.3g/dL (12.0-15.5) Hematocrit 27.2% (36.0-47.0) Mean Corpuscular Volume 86fL (79-100) Mean Corpuscular Hemoglobin 29pg (25-35) Mean Corpuscular Hemoglobin Concent 34g/dL (31-37) Red Cell Distribution Width 21.6% (11.5-14.5) Platelet Count 11x10^3/uL (140-400) Neutrophils (%) (Auto) 18% (31-73) Lymphocytes (%) (Auto) 68% (24-48) Monocytes (%) (Auto) 12% (0-9) Eosinophils (%) (Auto) 3% (0-3) Basophils (%) (Auto) 0% (0-3) Neutrophils # (Auto) 0.0x10^3uL (1.8-7.7) Lymphocytes # (Auto) 0.1x10^3/uL (1.0-4.8) Monocytes # (Auto) 0.0x10^3/uL (0.0-1.1) Eosinophils # (Auto) 0.0x10^3/uL (0.0-0.7) Basophils # (Auto) 0.0x10^3/uL (0.0-0.2) Laboratory Tests Test 10/04/16 11:50 10/04/16 13:45 10/04/16 15:10 10/04/16 15:55 Lactic Acid Level 3.7mmol/L (0.4-2.0) 3.7mmol/L (0.4-2.0) Clostridium difficile Toxin (PCR) Negative (Negative) Troponin I Quantitative 0.463ng/mL (0.000-0.055) Urine Collection Type Unknown Urine Color Yellow Urine Clarity Clear Urine pH 5.5 Urine Specific [place] 1.015 Urine Protein 30mg/dL (NEG-TRACE) Urine Glucose (UA) Negativemg/dL (NEG) Urine Ketones (Stick) Negativemg/dL (NEG) Urine Blood Small (NEG) Urine Nitrite Negative (NEG) Urine Bilirubin Negative (NEG) Urine Urobilinogen Dipstick 0.2mg/dL (0.2 mg/dL) Urine Leukocyte Esterase Negative (NEG) Urine RBC 0/HPF (0-2) Urine WBC 0/HPF (0-4) Urine Bacteria 0/HPF (0-FEW) Urine Yeast Present/HPF Test 10/04/16 16:00 10/04/16 20:30 10/05/16 05:40 10/05/16 06:30 Nasal Screen MRSA (PCR) Positive (Negative) Lactic Acid Level 1.4mmol/L (0.4-2.0) Troponin I Quantitative 0.506ng/mL (0.000-0.055) Sodium Level 144mmol/L (136-145) Potassium Level 2.8mmol/L (3.5-5.1) Chloride Level 111mmol/L (98-107) Carbon Dioxide Level 17mmol/L (21-32) Anion Gap 16 (6-14) Blood Urea Nitrogen 59mg/dL (7-20) Creatinine 2.2mg/dL (0.6-1.0) Estimated GFR (Cockcroft-Gault) 21.6 Glucose Level 112mg/dL (70-99) Calcium Level 5.7mg/dL (8.5-10.1) White Blood Count 0.1x10^3/uL (4.0-11.0) Red Blood Count 3.15x10^6/uL (3.50-5.40) Hemoglobin 9.3g/dL (12.0-15.5) Hematocrit 27.2% (36.0-47.0) Mean Corpuscular Volume 86fL (79-100) Mean Corpuscular Hemoglobin 29pg (25-35) Mean Corpuscular Hemoglobin Concent 34g/dL (31-37) Red Cell Distribution Width 21.6% (11.5-14.5) Platelet Count 11x10^3/uL (140-400) Neutrophils (%) (Auto) 18% (31-73) Lymphocytes (%) (Auto) 68% (24-48) Monocytes (%) (Auto) 12% (0-9) Eosinophils (%) (Auto) 3% (0-3) Basophils (%) (Auto) 0% (0-3) Neutrophils # (Auto) 0.0x10^3uL (1.8-7.7) Lymphocytes # (Auto) 0.1x10^3/uL (1.0-4.8) Monocytes # (Auto) 0.0x10^3/uL (0.0-1.1) Eosinophils # (Auto) 0.0x10^3/uL (0.0-0.7) Basophils # (Auto) 0.0x10^3/uL (0.0-0.2) Microbiology 10/04/16 Blood Culture - Preliminary, Resulted NO GROWTH AFTER 1 DAY Medications Current Medications Sodium Chloride 1,000 ml @ 1,000 mls/hr Q1H IV Last administered on 10/04/16 08:27; Start 10/04/16 at 09:15; Stop 10/04/16 at 10:14; Status DC Sodium Chloride 1,000 ml @ 1,000 mls/hr 1X ONCE IV Last administered on 08:58; Start 10/04/16 at 09:15; Stop 10/04/16 at 10:14; Status DC Meropenem 1 gm/ Sodium Chloride 100 ml @ 200 mls/hr Q12HR IV Last administered on 10/05/16 09:37; Start 10/04/16 at 21:00 Norepinephrine Bitartrate 8 mg/ Sodium Chloride 258 ml @ 1.93 mls/hr 1X ONCE IV ; Start 10/04/16 at 09:00; Stop 10/09/16 at 22:40; Status Cancel Norepinephrine Bitartrate 8 mg/ Sodium Chloride 258 ml @ 0 mls/hr 1X ONCE IV Last administered on 10/04/16 09:02; Start 10/04/16 at 09:00; Stop 10/04/16 at 09: 03; Status DC Meropenem 1 gm/ Sodium Chloride 100 ml @ 200 mls/hr 1X ONCE IV Last administered on 10/04/16 09:14; Start 10/04/16 at 09:15; Stop 10/04/16 at 09:44; Status DC Dextrose/Sodium Chloride (Iv D5% - 08/07 NS) 1,000 ml @ 125 mls/hr 1X ONCE IV Last administered on 10/04/16 12:57; Start 10/04/16 at 12:30; Stop 10/04/16 at 20: 29; Status DC Fentanyl Citrate (Fentanyl 2ml Vial) 25 mcg 1X ONCE IV Last administered on 13:06; Start 10/04/16 at 13:15; Stop 10/04/16 at 13:16; Status DC Ondansetron HCl (Zofran) 4 mg STK-MED ONCE .ROUTE ; Start 10/04/16 at 14:12; Stop 10/04/16 at 14:13; Status DC Ondansetron HCl 4 mg 4 mg PRN Q6HRS PRN IV NAUSEA/VOMITING Last administered on 10/05/16 09:36; Start 10/04/16 at 15:45 Sodium Chloride (Iv Sodium Chloride 0.9% 1000ml Bag) 1,000 ml @ 1,000 mls/hr 1X ONCE IV Last administered on 10/04/16 15:59; Start 10/04/16 at 16:15; Stop 10/04/16 at 17:14; Status DC Tbo-Filgrastim 300 mcg 300 mcg QHS SQ Last administered on 10/04/16 21:43; Start 10/04/16 at 21:00 Metronidazole 100 ml @ 100 mls/hr Q8HRS IV Last administered on 10/05/16 05:39 ; Start 10/04/16 at 22:00; Stop 10/05/16 at 07:43; Status DC Vancomycin HCl 1.25 gm/Sodium Chloride 250 ml @ 166.667 mls/hr 1X ONCE IV Last administered on 10/04/16 19:51; Start 10/04/16 at 17:00; Stop 10/04/16 at 18: 29; Status DC Micafungin Sodium/ Dextrose (Mycamine) 100 ml @ 100 mls/hr Q24H IV Last administered on 10/04/16 17:57; Start 10/04/16 at 17:00 Fentanyl Citrate 25 mcg 25 mcg PRN Q2HR PRN IV PAIN Last administered on 04:25; Start 10/04/16 at 16:45 Magnesium Sulfate/ Dextrose 100 ml @ 25 mls/hr 1X ONCE IV Last administered on 10/04/16 19:47; Start 10/04/16 at 16:30; Stop 10/04/16 at 20:29; Status DC Norepinephrine Bitartrate/Sodium Chloride (Levophed Vial/ Iv Sodium Chloride 0.9 % 250ml) 258 ml @ 0 mls/hr CONT PRN IV SEE I/O RECORD Last administered on 00:12; Start 10/04/16 at 18:15 Prochlorperazine Edisylate 10 mg 10 mg PRN Q6HRS PRN IV NAUSEA/VOMITING Last administered on 10/05/16 08:15; Start 10/04/16 at 19:30 Potassium Chloride 50 ml @ 50 mls/hr Q1H IV Last administered on 10/05/16 09:37 ; Start 10/05/16 at 07:00; Stop 10/05/16 at 09:59 Calcium Gluconate/ Sodium Chloride (Iv Sodium Chloride 0.9% 100ml) 120 ml @ 220 mls/hr 1X ONCE IV Last administered on 10/05/16 08:24; Start 10/05/16 at 07 :00; Stop 10/05/16 at 07:32; Status DC Vancomycin HCl 1 each 1 each PRN DAILY PRN MC SEE COMMENTS Last administered on 10/05/16 08:34; Start 10/05/16 at 07:45 Vancomycin HCl/ Sodium Chloride (Iv Sodium Chloride 0.9% 250ml) 250 ml @ 250 mls/hr Q24H IV ; Start 10/05/16 at 20:00 Vancomycin HCl 1 each 1X ONCE MC ; Start 10/06/16 at 19:30; Stop 10/06/16 at 19: 31 Active Scripts Active Reported Children's Aspirin (Aspirin) 81 Mg Tab.chew 81 Mg PO Protonix (Pantoprazole Sodium) 40 Mg Tablet.dr 1 Tab PO DAILY Orphenadrine Citrate 100 Mg Tablet.er 1 Tab PO BID Mirtazapine 15 Mg Tablet 1 Tab PO QHS Xanax (Alprazolam) 0.5 Mg Tablet 0.5 Mg PO PRN Q6HRS PRN Allopurinol 300 Mg Tablet 1 Tab PO DAILY Vitals/I & O Vital Sign - Last 24 Hours 10/04/16 10/04/16 10/04/16 10/04/16 10:00 10:30 11:45 12:00 Pulse 116 114 118 118 Resp 26 29 28 25 B/P 105/70 98/59 110/58 103/57 Pulse Ox 99 98 100 100 O2 Delivery Venturi Mask Venturi Mask Venturi Mask Venturi Mask O2 Flow Rate 15 15 15 15 10/04/16 10/04/16 10/04/16 10/04/16 12:15 15:10 15:15 15:26 Temp 98.5 98.5 98.5 98.5 Pulse 120 124 125 Resp 29 26 B/P 106/55 95/52 95/52 Pulse Ox 100 90 94 O2 Delivery Venturi Mask Nasal Cannula Room Air Nasal Cannula O2 Flow Rate 15 4.0 2.0 10/04/16 10/04/16 10/04/16 10/04/16 15:30 15:45 16:00 16:15 Temp 97.8 97.8 Pulse 124 128 130 130 Resp 34 36 35 36 B/P 91/49 115/78 90/37 96/61 Pulse Ox 96 96 96 94 O2 Delivery Nasal Cannula Nasal Cannula Nasal Cannula Nasal Cannula O2 Flow Rate 4.0 4.0 4.0 4.0 10/04/16 10/04/16 10/04/16 10/04/16 16:30 16:39 16:45 17:00 Pulse 130 128 124 Resp 33 26 35 31 B/P 112/84 103/69 95/55 Pulse Ox 92 92 94 96 O2 Delivery Nasal Cannula Nasal Cannula Nasal Cannula Nasal Cannula O2 Flow Rate 4.0 4.0 4.0 4.0 10/04/16 10/04/16 10/04/16 10/04/16 17:15 17:15 17:30 17:45 Pulse 122 122 122 Resp 31 31 31 B/P 105/62 107/60 100/59 Pulse Ox 97 98 99 O2 Delivery Nasal Cannula Nasal Cannula Nasal Cannula Nasal Cannula O2 Flow Rate 4.0 4.0 4.0 10/04/16 10/04/16 10/04/16 10/04/16 18:00 18:15 18:30 19:00 Pulse 126 126 130 132 Resp 36 36 36 40 B/P 101/61 100/50 83/52 83/52 Pulse Ox 97 98 98 97 O2 Delivery Nasal Cannula Nasal Cannula Nasal Cannula Nasal Cannula O2 Flow Rate 4.0 4.0 4.0 4.0 10/04/16 10/04/16 10/04/16 10/04/16 19:27 19:30 20:00 21:00 Temp 100.5 100.5 Pulse 128 128 Resp 39 28 29 B/P 101/46 76/48 Pulse Ox 91 98 100 O2 Delivery Nasal Cannula Nasal Cannula Nasal Cannula O2 Flow Rate 4.0 4.0 4.0 10/04/16 10/04/16 10/04/16 10/04/16 21:15 21:30 21:45 22:00 B/P 95/45 81/52 83/46 83/44 10/04/16 10/04/16 10/04/16 10/04/16 22:03 22:15 22:30 22:34 Pulse 126 122 Resp 28 28 B/P 98/49 108/56 Pulse Ox 100 100 O2 Delivery Nasal Cannula O2 Flow Rate 4.0 4.0 10/04/16 10/04/16 10/04/16 10/05/16 22:45 23:00 23:59 00:00 Temp 100.7 100.7 Pulse 122 121 121 Resp 34 26 B/P 107/61 117/62 116/52 Pulse Ox 100 100 O2 Delivery Nasal Cannula Nasal Cannula Nasal Cannula O2 Flow Rate 4.0 4.0 4.0 10/05/16 10/05/16 10/05/16 10/05/16 00:16 01:00 02:00 02:45 Pulse 116 120 Resp 37 22 25 B/P 116/59 119/54 123/62 Pulse Ox 100 100 100 O2 Delivery Nasal Cannula Nasal Cannula Nasal Cannula O2 Flow Rate 4.0 4.0 4.0 10/05/16 10/05/16 10/05/16 10/05/16 03:00 03:15 04:00 04:15 Temp 100.6 100.6 Pulse 123 125 122 Resp 27 30 B/P 117/61 116/60 118/57 Pulse Ox 100 100 100 O2 Delivery Nasal Cannula Nasal Cannula Nasal Cannula Nasal Cannula O2 Flow Rate 4.0 4.0 4.0 4.0 10/05/16 10/05/16 10/05/16 10/05/16 04:25 04:30 04:45 06:00 Pulse 123 Resp 28 27 B/P 123/69 118/64 93/65 Pulse Ox 100 100 O2 Delivery Nasal Cannula Room Air O2 Flow Rate 4.0 Intake and Output 10/04/16 10/04/16 10/05/16 15:00 23:00 07:00 Intake Total 2100 ml 1634 ml 897 ml Output Total 950 ml 960 ml Balance 2100 ml 684 ml -63 ml UMA ALATORRE MD Oct 05, 2016 09:58
--- NOTE | 2016-10-05 10:58 | PDOC2 ---
CONSULT Date of Consult Date of Consult DATE: 10/05/16 TIME: 10:54 Reason for Consult Reason for Consult: EPHRAIM Referring Physician Referring Physician: STEVE Identification/Chief Complaint Chief Complaint CONFUSION Source Source: Chart review History of Present Illness Reason for Visit: THIS IS A 76 YR OLD ADMITTED WITH CONFUSION AND A SUBSEQUENT DX OF SEPSIS. SHE IS NOTED TO BE PANCYTOPENIC. SHE HAS HX OF MET SCLC. SHE HAS UNDERGONE CHEMO AND RAD PALLIATIVE TX. SHE HAS NOT BEEN EATING WELL PER HER FAMILY. CR IS 2.8 WITH SOME ELECTROLYTE IMBALANCE Past Medical History Cardiovascular: HTN, Hyperlipidemia Pulmonary: Other (Stage 4 lung CA with mets with chemo diagnosed 07/2016) CENTRAL NERVOUS SYSTEM: Other (No pertinent history) GI: GERD Psych: Anxiety Musculoskeletal: Osteoarthritis Past Surgical History Past Surgical History: Other (right chest portacath; vertebroplasty) Family History Family History: Coronary Artery Disease (father) Social History No ALCOHOL: none Drugs: None Lives: with Family Current Problem List Problem List Problems Medical Problems: (1) Hypotension Status: Acute Current Medications Current Medications Current Medications Sodium Chloride 1,000 ml @ 1,000 mls/hr Q1H IV Last administered on 10/04/16 08:27; Start 10/04/16 at 09:15; Stop 10/04/16 at 10:14; Status DC Sodium Chloride 1,000 ml @ 1,000 mls/hr 1X ONCE IV Last administered on 08:58; Start 10/04/16 at 09:15; Stop 10/04/16 at 10:14; Status DC Meropenem 1 gm/ Sodium Chloride 100 ml @ 200 mls/hr Q12HR IV Last administered on 10/05/16 09:37; Start 10/04/16 at 21:00 Norepinephrine Bitartrate 8 mg/ Sodium Chloride 258 ml @ 1.93 mls/hr 1X ONCE IV ; Start 10/04/16 at 09:00; Stop 10/09/16 at 22:40; Status Cancel Norepinephrine Bitartrate 8 mg/ Sodium Chloride 258 ml @ 0 mls/hr 1X ONCE IV Last administered on 10/04/16 09:02; Start 10/04/16 at 09:00; Stop 10/04/16 at 09: 03; Status DC Meropenem 1 gm/ Sodium Chloride 100 ml @ 200 mls/hr 1X ONCE IV Last administered on 10/04/16 09:14; Start 10/04/16 at 09:15; Stop 10/04/16 at 09:44; Status DC Dextrose/Sodium Chloride (Iv D5% - 1/ NS) 1,000 ml @ 125 mls/hr 1X ONCE IV Last administered on 10/04/16 12:57; Start 10/04/16 at 12:30; Stop 10/04/16 at 20: 29; Status DC Fentanyl Citrate (Fentanyl 2ml Vial) 25 mcg 1X ONCE IV Last administered on 13:06; Start 10/04/16 at 13:15; Stop 10/04/16 at 13:16; Status DC Ondansetron HCl (Zofran) 4 mg STK-MED ONCE .ROUTE ; Start 10/04/16 at 14:12; Stop 10/04/16 at 14:13; Status DC Ondansetron HCl 4 mg 4 mg PRN Q6HRS PRN IV NAUSEA/VOMITING Last administered on 10/05/16 09:36; Start 10/04/16 at 15:45 Sodium Chloride (Iv Sodium Chloride 0.9% 1000ml Bag) 1,000 ml @ 1,000 mls/hr 1X ONCE IV Last administered on 10/04/16 15:59; Start 10/04/16 at 16:15; Stop 10/04/16 at 17:14; Status DC Tbo-Filgrastim 300 mcg 300 mcg QHS SQ Last administered on 10/04/16 21:43; Start 10/04/16 at 21:00 Metronidazole 100 ml @ 100 mls/hr Q8HRS IV Last administered on 10/05/16 05:39 ; Start 10/04/16 at 22:00; Stop 10/05/16 at 07:43; Status DC Vancomycin HCl 1.25 gm/Sodium Chloride 250 ml @ 166.667 mls/hr 1X ONCE IV Last administered on 10/04/16 19:51; Start 10/04/16 at 17:00; Stop 10/04/16 at 18: 29; Status DC Micafungin Sodium/ Dextrose (Mycamine) 100 ml @ 100 mls/hr Q24H IV Last administered on 10/04/16 17:57; Start 10/04/16 at 17:00 Fentanyl Citrate 25 mcg 25 mcg PRN Q2HR PRN IV PAIN Last administered on 04:25; Start 10/04/16 at 16:45 Magnesium Sulfate/ Dextrose 100 ml @ 25 mls/hr 1X ONCE IV Last administered on 10/04/16 19:47; Start 10/04/16 at 16:30; Stop 10/04/16 at 20:29; Status DC Norepinephrine Bitartrate/Sodium Chloride (Levophed Vial/ Iv Sodium Chloride 0.9 % 250ml) 258 ml @ 0 mls/hr CONT PRN IV SEE I/O RECORD Last administered on 00:12; Start 10/04/16 at 18:15 Prochlorperazine Edisylate 10 mg 10 mg PRN Q6HRS PRN IV NAUSEA/VOMITING Last administered on 10/05/16 08:15; Start 10/04/16 at 19:30 Potassium Chloride 50 ml @ 50 mls/hr Q1H IV Last administered on 10/05/16 10:31 ; Start 10/05/16 at 07:00; Stop 10/05/16 at 09:59; Status DC Calcium Gluconate/ Sodium Chloride (Iv Sodium Chloride 0.9% 100ml) 120 ml @ 220 mls/hr 1X ONCE IV Last administered on 10/05/16 08:24; Start 10/05/16 at 07 :00; Stop 10/05/16 at 07:32; Status DC Vancomycin HCl 1 each 1 each PRN DAILY PRN MC SEE COMMENTS Last administered on 10/05/16 08:34; Start 10/05/16 at 07:45 Vancomycin HCl/ Sodium Chloride (Iv Sodium Chloride 0.9% 250ml) 250 ml @ 250 mls/hr Q24H IV ; Start 10/05/16 at 20:00 Vancomycin HCl 1 each 1X ONCE MC ; Start 10/06/16 at 19:30; Stop 10/06/16 at 19: 31 Active Scripts Active Reported Children's Aspirin (Aspirin) 81 Mg Tab.chew 81 Mg PO Protonix (Pantoprazole Sodium) 40 Mg Tablet.dr 1 Tab PO DAILY Orphenadrine Citrate 100 Mg Tablet.er 1 Tab PO BID Mirtazapine 15 Mg Tablet 1 Tab PO QHS Xanax (Alprazolam) 0.5 Mg Tablet 0.5 Mg PO PRN Q6HRS PRN Allopurinol 300 Mg Tablet 1 Tab PO DAILY Allergies Allergies: Coded Allergies: Penicillins (Verified Allergy, Intermediate, 10/04/16) Sulfa (Sulfonamide Antibiotics) (Verified Allergy, Intermediate, 10/04/16) cholestyramine (Verified Allergy, Intermediate, 10/04/16) morphine (Verified Allergy, Intermediate, 10/04/16) I S O L A T I O N *CONTACT* (Verified Allergy, Unknown, 10/05/16) mrsa atorvastatin (Verified Adverse Reaction, Mild, UPSETS STOMACH, 10/04/16) rosuvastatin (Verified Adverse Reaction, Mild, UPSETS STOMACH, 10/04/16) ROS Review of System UNABLE TO OBTAIN FROM PT Physical Exam General: Cooperative HEENT: Atraumatic, PERRLA, Other (DRY MUCOSA) Lungs: Clear to auscultation Heart: Regular rate, Normal S2 Abdomen: Normal bowel sounds, Soft Extremities: No clubbing Skin: No significant lesion Neuro: Other (LETHARGIC) Psych/Mental Status: Other (CONFUSED) MUSCULOSKELETAL: No deformity Vitals VITALS Vital Signs Date Time Temp Pulse Resp B/P Pulse Ox O2 Delivery O2 Flow Rate FiO2 10/05/16 06:00 123 27 93/65 100 Room Air 10/05/16 04:25 4.0 10/05/16 04:00 100.6 100.6 Labs Labs Laboratory Tests Test 10/04/16 08:35 10/04/16 09:00 10/04/16 11:50 10/04/16 13:45 White Blood Count 0.8x10^3/uL (4.0-11.0) Red Blood Count 3.80x10^6/uL (3.50-5.40) Hemoglobin 11.2g/dL (12.0-15.5) Hematocrit 35.1% (36.0-47.0) Mean Corpuscular Volume 92fL (79-100) Mean Corpuscular Hemoglobin 29pg (25-35) Mean Corpuscular Hemoglobin Concent 32g/dL (31-37) Red Cell Distribution Width 22.8% (11.5-14.5) Platelet Count 47x10^3/uL (140-400) Neutrophils (%) (Auto) 5% (31-73) Lymphocytes (%) (Auto) 93% (24-48) Monocytes (%) (Auto) 1% (0-9) Eosinophils (%) (Auto) 1% (0-3) Basophils (%) (Auto) 0% (0-3) Neutrophils # (Auto) 0.0x10^3uL (1.8-7.7) Lymphocytes # (Auto) 0.8x10^3/uL (1.0-4.8) Monocytes # (Auto) 0.0x10^3/uL (0.0-1.1) Eosinophils # (Auto) 0.0x10^3/uL (0.0-0.7) Basophils # (Auto) 0.0x10^3/uL (0.0-0.2) Prothrombin Time 15.9SEC (11.7-14.0) Prothromb Time International Ratio 1.4 (0.8-1.1) O2 Saturation 97% (92-99) Arterial Blood pH 7.20 (7.35-7.45) Arterial Blood pCO2 at Patient Temp 19mmHg (35-46) Arterial Blood pO2 at Patient Temp 137mmHg (65-108) Arterial Blood HCO3 7mmol/L (21-28) Arterial Blood Base Excess -19mmol/L (-3-3) FiO2 100.0 Sodium Level 144mmol/L (136-145) Potassium Level 3.8mmol/L (3.5-5.1) Chloride Level 104mmol/L (98-107) Carbon Dioxide Level 12mmol/L (21-32) Anion Gap 28 (6-14) Blood Urea Nitrogen 67mg/dL (7-20) Creatinine 2.9mg/dL (0.6-1.0) Estimated GFR (Cockcroft-Gault) 15.7 Glucose Level 137mg/dL (70-99) Lactic Acid Level 13.2mmol/L (0.4-2.0) 3.7mmol/L (0.4-2.0) Calcium Level 7.3mg/dL (8.5-10.1) Magnesium Level 1.2mg/dL (1.8-2.4) Total Bilirubin 0.5mg/dL (0.2-1.0) Direct Bilirubin 0.2mg/dL (0.0-0.2) Aspartate Amino Transf (AST/SGOT) 74U/L (15-37) Alanine Aminotransferase (ALT/SGPT) 82U/L (14-59) Alkaline Phosphatase 175U/L (46-116) Creatine Kinase 54U/L (26-192) Creatine Kinase MB (Mass) 0.9ng/mL (0.0-3.6) Creatine Kinase MB Relative Index % (0-4) Troponin I Quantitative 0.095ng/mL (0.000-0.055) MS-Hjv-W-Type Natriuretic Peptide 9753pg/mL (0-449) Total Protein 5.4g/dL (6.4-8.2) Albumin 2.7g/dL (3.4-5.0) Lipase 167U/L (73-393) Thyroid Stimulating Hormone (TSH) 13.741uIU/mL (0.358-3.74) Influenza Type A Antigen Negative (NEGATIVE) Influenza Type B Antigen Negative (NEGATIVE) Clostridium difficile Toxin (PCR) Negative (Negative) Test 10/04/16 15:10 10/04/16 15:55 10/04/16 16:00 10/04/16 20:30 Lactic Acid Level 3.7mmol/L (0.4-2.0) 1.4mmol/L (0.4-2.0) Troponin I Quantitative 0.463ng/mL (0.000-0.055) 0.506ng/mL (0.000-0.055) Urine Collection Type Unknown Urine Color Yellow Urine Clarity Clear Urine pH 5.5 Urine Specific [place] 1.015 Urine Protein 30mg/dL (NEG-TRACE) Urine Glucose (UA) Negativemg/dL (NEG) Urine Ketones (Stick) Negativemg/dL (NEG) Urine Blood Small (NEG) Urine Nitrite Negative (NEG) Urine Bilirubin Negative (NEG) Urine Urobilinogen Dipstick 0.2mg/dL (0.2 mg/dL) Urine Leukocyte Esterase Negative (NEG) Urine RBC 0/HPF (0-2) Urine WBC 0/HPF (0-4) Urine Bacteria 0/HPF (0-FEW) Urine Yeast Present/HPF Nasal Screen MRSA (PCR) Positive (Negative) Test 10/05/16 05:40 10/05/16 06:30 Sodium Level 144mmol/L (136-145) Potassium Level 2.8mmol/L (3.5-5.1) Chloride Level 111mmol/L (98-107) Carbon Dioxide Level 17mmol/L (21-32) Anion Gap 16 (6-14) Blood Urea Nitrogen 59mg/dL (7-20) Creatinine 2.2mg/dL (0.6-1.0) Estimated GFR (Cockcroft-Gault) 21.6 Glucose Level 112mg/dL (70-99) Calcium Level 5.7mg/dL (8.5-10.1) White Blood Count 0.1x10^3/uL (4.0-11.0) Red Blood Count 3.15x10^6/uL (3.50-5.40) Hemoglobin 9.3g/dL (12.0-15.5) Hematocrit 27.2% (36.0-47.0) Mean Corpuscular Volume 86fL (79-100) Mean Corpuscular Hemoglobin 29pg (25-35) Mean Corpuscular Hemoglobin Concent 34g/dL (31-37) Red Cell Distribution Width 21.6% (11.5-14.5) Platelet Count 11x10^3/uL (140-400) Neutrophils (%) (Auto) 18% (31-73) Lymphocytes (%) (Auto) 68% (24-48) Monocytes (%) (Auto) 12% (0-9) Eosinophils (%) (Auto) 3% (0-3) Basophils (%) (Auto) 0% (0-3) Neutrophils # (Auto) 0.0x10^3uL (1.8-7.7) Lymphocytes # (Auto) 0.1x10^3/uL (1.0-4.8) Monocytes # (Auto) 0.0x10^3/uL (0.0-1.1) Eosinophils # (Auto) 0.0x10^3/uL (0.0-0.7) Basophils # (Auto) 0.0x10^3/uL (0.0-0.2) Laboratory Tests Test 10/04/16 11:50 10/04/16 13:45 10/04/16 15:10 10/04/16 15:55 Lactic Acid Level 3.7mmol/L (0.4-2.0) 3.7mmol/L (0.4-2.0) Clostridium difficile Toxin (PCR) Negative (Negative) Troponin I Quantitative 0.463ng/mL (0.000-0.055) Urine Collection Type Unknown Urine Color Yellow Urine Clarity Clear Urine pH 5.5 Urine Specific [place] 1.015 Urine Protein 30mg/dL (NEG-TRACE) Urine Glucose (UA) Negativemg/dL (NEG) Urine Ketones (Stick) Negativemg/dL (NEG) Urine Blood Small (NEG) Urine Nitrite Negative (NEG) Urine Bilirubin Negative (NEG) Urine Urobilinogen Dipstick 0.2mg/dL (0.2 mg/dL) Urine Leukocyte Esterase Negative (NEG) Urine RBC 0/HPF (0-2) Urine WBC 0/HPF (0-4) Urine Bacteria 0/HPF (0-FEW) Urine Yeast Present/HPF Test 10/04/16 16:00 10/04/16 20:30 10/05/16 05:40 10/05/16 06:30 Nasal Screen MRSA (PCR) Positive (Negative) Lactic Acid Level 1.4mmol/L (0.4-2.0) Troponin I Quantitative 0.506ng/mL (0.000-0.055) Sodium Level 144mmol/L (136-145) Potassium Level 2.8mmol/L (3.5-5.1) Chloride Level 111mmol/L (98-107) Carbon Dioxide Level 17mmol/L (21-32) Anion Gap 16 (6-14) Blood Urea Nitrogen 59mg/dL (7-20) Creatinine 2.2mg/dL (0.6-1.0) Estimated GFR (Cockcroft-Gault) 21.6 Glucose Level 112mg/dL (70-99) Calcium Level 5.7mg/dL (8.5-10.1) White Blood Count 0.1x10^3/uL (4.0-11.0) Red Blood Count 3.15x10^6/uL (3.50-5.40) Hemoglobin 9.3g/dL (12.0-15.5) Hematocrit 27.2% (36.0-47.0) Mean Corpuscular Volume 86fL (79-100) Mean Corpuscular Hemoglobin 29pg (25-35) Mean Corpuscular Hemoglobin Concent 34g/dL (31-37) Red Cell Distribution Width 21.6% (11.5-14.5) Platelet Count 11x10^3/uL (140-400) Neutrophils (%) (Auto) 18% (31-73) Lymphocytes (%) (Auto) 68% (24-48) Monocytes (%) (Auto) 12% (0-9) Eosinophils (%) (Auto) 3% (0-3) Basophils (%) (Auto) 0% (0-3) Neutrophils # (Auto) 0.0x10^3uL (1.8-7.7) Lymphocytes # (Auto) 0.1x10^3/uL (1.0-4.8) Monocytes # (Auto) 0.0x10^3/uL (0.0-1.1) Eosinophils # (Auto) 0.0x10^3/uL (0.0-0.7) Basophils # (Auto) 0.0x10^3/uL (0.0-0.2) Assessment/Plan Assessment/Plan IMP SEPSIS EPHRAIM HYPOVOLEMIA HYPOTENSION MALNUTRITION SCLC WITH METS PLAN IVF'S PRESSORS PPN ANTIBIOTICS CORRECT ELECTROLYTES UGO STARK MD Oct 05, 2016 10:58
[2016-10-05] MEDS ORDERED: AA 4.25%/CALCIUM/LYTES/D5W 1,000 ML IV SCH (11:45)
[2016-10-05] MEDS ORDERED: POTASSIUM CL 20MEQ D5-0.45NACL 1,000 ML IV SCH (11:45)
--- NOTE | 2016-10-05 11:59 | PDOC ---
PROGRESS NOTES Chief Complaint Chief Complaint 1. Probable sepsis after chemotherapy 2. Hypotension 3. Pancytopenia 4. Nausea, Vomiting, Diarrhea History of Present Illness History of Present Illness Patient was in the bed at the time of evaluation, awake, family was present at bedside, plan of care discussed with patient and family at length, patient reported to feel better than yesterday, she has less nausea and was able to keep down some sips of water, she was very weak and lethargic. Plan of care discussed with RN. Vitals Vitals Vital Signs Date Time Temp Pulse Resp B/P Pulse Ox O2 Delivery O2 Flow Rate FiO2 10/05/16 11:00 131 32 94/56 99 Room Air 10/05/16 08:00 97.7 97.7 10/05/16 04:25 4.0 Physical Exam General: Cooperative Heart: Regular rate, Normal S2 Abdomen: Soft Extremities: No clubbing Skin: No significant lesion Labs LABS Laboratory Tests Test 10/04/16 11:50 10/04/16 13:45 10/04/16 15:10 10/04/16 15:55 Lactic Acid Level 3.7mmol/L (0.4-2.0) 3.7mmol/L (0.4-2.0) Clostridium difficile Toxin (PCR) Negative (Negative) Troponin I Quantitative 0.463ng/mL (0.000-0.055) Urine Collection Type Unknown Urine Color Yellow Urine Clarity Clear Urine pH 5.5 Urine Specific [place] 1.015 Urine Protein 30mg/dL (NEG-TRACE) Urine Glucose (UA) Negativemg/dL (NEG) Urine Ketones (Stick) Negativemg/dL (NEG) Urine Blood Small (NEG) Urine Nitrite Negative (NEG) Urine Bilirubin Negative (NEG) Urine Urobilinogen Dipstick 0.2mg/dL (0.2 mg/dL) Urine Leukocyte Esterase Negative (NEG) Urine RBC 0/HPF (0-2) Urine WBC 0/HPF (0-4) Urine Bacteria 0/HPF (0-FEW) Urine Yeast Present/HPF Test 10/04/16 16:00 10/04/16 20:30 10/05/16 05:40 10/05/16 06:30 Nasal Screen MRSA (PCR) Positive (Negative) Lactic Acid Level 1.4mmol/L (0.4-2.0) Troponin I Quantitative 0.506ng/mL (0.000-0.055) Sodium Level 144mmol/L (136-145) Potassium Level 2.8mmol/L (3.5-5.1) Chloride Level 111mmol/L (98-107) Carbon Dioxide Level 17mmol/L (21-32) Anion Gap 16 (6-14) Blood Urea Nitrogen 59mg/dL (7-20) Creatinine 2.2mg/dL (0.6-1.0) Estimated GFR (Cockcroft-Gault) 21.6 Glucose Level 112mg/dL (70-99) Calcium Level 5.7mg/dL (8.5-10.1) White Blood Count 0.1x10^3/uL (4.0-11.0) Red Blood Count 3.15x10^6/uL (3.50-5.40) Hemoglobin 9.3g/dL (12.0-15.5) Hematocrit 27.2% (36.0-47.0) Mean Corpuscular Volume 86fL (79-100) Mean Corpuscular Hemoglobin 29pg (25-35) Mean Corpuscular Hemoglobin Concent 34g/dL (31-37) Red Cell Distribution Width 21.6% (11.5-14.5) Platelet Count 11x10^3/uL (140-400) Neutrophils (%) (Auto) 18% (31-73) Lymphocytes (%) (Auto) 68% (24-48) Monocytes (%) (Auto) 12% (0-9) Eosinophils (%) (Auto) 3% (0-3) Basophils (%) (Auto) 0% (0-3) Neutrophils # (Auto) 0.0x10^3uL (1.8-7.7) Lymphocytes # (Auto) 0.1x10^3/uL (1.0-4.8) Monocytes # (Auto) 0.0x10^3/uL (0.0-1.1) Eosinophils # (Auto) 0.0x10^3/uL (0.0-0.7) Basophils # (Auto) 0.0x10^3/uL (0.0-0.2) Review of Systems Review of Systems Improved nausea, no vomiting, complains of generalized weakness, lethargy, Neutropenic fever, Sepsis, Assessment and Plan Assessmemt and Plan ASSESSMENT 1. Probable sepsis after chemotherapy 2. Hypotension- on vasopressor 3. Pancytopenia 4. Nausea, Vomiting, Diarrhea 5. Dehydration 6. Neutropenic fever PLAN 1. Pt out of network here, has bed at [facility], planning to transfer. 2. Continue IVF, Meropenem, Vanco, Levophed and supportive care. 3. Neutropenic fever, severe sepsis - on granix 4. Clear liquid diet 5. Continue plan of care per ICU protocol 6. Plan discussed with family and RN 7. appreciate subspecialities inputs and recommendations. Problems Problems: Comment Review of Relevant I have reviewed the following items montserrat (where applicable) has been applied. Labs Laboratory Tests Test 10/04/16 08:35 10/04/16 09:00 10/04/16 11:50 10/04/16 13:45 White Blood Count 0.8x10^3/uL (4.0-11.0) Red Blood Count 3.80x10^6/uL (3.50-5.40) Hemoglobin 11.2g/dL (12.0-15.5) Hematocrit 35.1% (36.0-47.0) Mean Corpuscular Volume 92fL (79-100) Mean Corpuscular Hemoglobin 29pg (25-35) Mean Corpuscular Hemoglobin Concent 32g/dL (31-37) Red Cell Distribution Width 22.8% (11.5-14.5) Platelet Count 47x10^3/uL (140-400) Neutrophils (%) (Auto) 5% (31-73) Lymphocytes (%) (Auto) 93% (24-48) Monocytes (%) (Auto) 1% (0-9) Eosinophils (%) (Auto) 1% (0-3) Basophils (%) (Auto) 0% (0-3) Neutrophils # (Auto) 0.0x10^3uL (1.8-7.7) Lymphocytes # (Auto) 0.8x10^3/uL (1.0-4.8) Monocytes # (Auto) 0.0x10^3/uL (0.0-1.1) Eosinophils # (Auto) 0.0x10^3/uL (0.0-0.7) Basophils # (Auto) 0.0x10^3/uL (0.0-0.2) Prothrombin Time 15.9SEC (11.7-14.0) Prothromb Time International Ratio 1.4 (0.8-1.1) O2 Saturation 97% (92-99) Arterial Blood pH 7.20 (7.35-7.45) Arterial Blood pCO2 at Patient Temp 19mmHg (35-46) Arterial Blood pO2 at Patient Temp 137mmHg (65-108) Arterial Blood HCO3 7mmol/L (21-28) Arterial Blood Base Excess -19mmol/L (-3-3) FiO2 100.0 Sodium Level 144mmol/L (136-145) Potassium Level 3.8mmol/L (3.5-5.1) Chloride Level 104mmol/L (98-107) Carbon Dioxide Level 12mmol/L (21-32) Anion Gap 28 (6-14) Blood Urea Nitrogen 67mg/dL (7-20) Creatinine 2.9mg/dL (0.6-1.0) Estimated GFR (Cockcroft-Gault) 15.7 Glucose Level 137mg/dL (70-99) Lactic Acid Level 13.2mmol/L (0.4-2.0) 3.7mmol/L (0.4-2.0) Calcium Level 7.3mg/dL (8.5-10.1) Magnesium Level 1.2mg/dL (1.8-2.4) Total Bilirubin 0.5mg/dL (0.2-1.0) Direct Bilirubin 0.2mg/dL (0.0-0.2) Aspartate Amino Transf (AST/SGOT) 74U/L (15-37) Alanine Aminotransferase (ALT/SGPT) 82U/L (14-59) Alkaline Phosphatase 175U/L (46-116) Creatine Kinase 54U/L (26-192) Creatine Kinase MB (Mass) 0.9ng/mL (0.0-3.6) Creatine Kinase MB Relative Index % (0-4) Troponin I Quantitative 0.095ng/mL (0.000-0.055) FM-Vcw-R-Type Natriuretic Peptide 9753pg/mL (0-449) Total Protein 5.4g/dL (6.4-8.2) Albumin 2.7g/dL (3.4-5.0) Lipase 167U/L (73-393) Thyroid Stimulating Hormone (TSH) 13.741uIU/mL (0.358-3.74) Influenza Type A Antigen Negative (NEGATIVE) Influenza Type B Antigen Negative (NEGATIVE) Clostridium difficile Toxin (PCR) Negative (Negative) Test 10/04/16 15:10 10/04/16 15:55 10/04/16 16:00 10/04/16 20:30 Lactic Acid Level 3.7mmol/L (0.4-2.0) 1.4mmol/L (0.4-2.0) Troponin I Quantitative 0.463ng/mL (0.000-0.055) 0.506ng/mL (0.000-0.055) Urine Collection Type Unknown Urine Color Yellow Urine Clarity Clear Urine pH 5.5 Urine Specific [place] 1.015 Urine Protein 30mg/dL (NEG-TRACE) Urine Glucose (UA) Negativemg/dL (NEG) Urine Ketones (Stick) Negativemg/dL (NEG) Urine Blood Small (NEG) Urine Nitrite Negative (NEG) Urine Bilirubin Negative (NEG) Urine Urobilinogen Dipstick 0.2mg/dL (0.2 mg/dL) Urine Leukocyte Esterase Negative (NEG) Urine RBC 0/HPF (0-2) Urine WBC 0/HPF (0-4) Urine Bacteria 0/HPF (0-FEW) Urine Yeast Present/HPF Nasal Screen MRSA (PCR) Positive (Negative) Test 10/05/16 05:40 10/05/16 06:30 Sodium Level 144mmol/L (136-145) Potassium Level 2.8mmol/L (3.5-5.1) Chloride Level 111mmol/L (98-107) Carbon Dioxide Level 17mmol/L (21-32) Anion Gap 16 (6-14) Blood Urea Nitrogen 59mg/dL (7-20) Creatinine 2.2mg/dL (0.6-1.0) Estimated GFR (Cockcroft-Gault) 21.6 Glucose Level 112mg/dL (70-99) Calcium Level 5.7mg/dL (8.5-10.1) White Blood Count 0.1x10^3/uL (4.0-11.0) Red Blood Count 3.15x10^6/uL (3.50-5.40) Hemoglobin 9.3g/dL (12.0-15.5) Hematocrit 27.2% (36.0-47.0) Mean Corpuscular Volume 86fL (79-100) Mean Corpuscular Hemoglobin 29pg (25-35) Mean Corpuscular Hemoglobin Concent 34g/dL (31-37) Red Cell Distribution Width 21.6% (11.5-14.5) Platelet Count 11x10^3/uL (140-400) Neutrophils (%) (Auto) 18% (31-73) Lymphocytes (%) (Auto) 68% (24-48) Monocytes (%) (Auto) 12% (0-9) Eosinophils (%) (Auto) 3% (0-3) Basophils (%) (Auto) 0% (0-3) Neutrophils # (Auto) 0.0x10^3uL (1.8-7.7) Lymphocytes # (Auto) 0.1x10^3/uL (1.0-4.8) Monocytes # (Auto) 0.0x10^3/uL (0.0-1.1) Eosinophils # (Auto) 0.0x10^3/uL (0.0-0.7) Basophils # (Auto) 0.0x10^3/uL (0.0-0.2) Laboratory Tests Test 10/04/16 11:50 10/04/16 13:45 10/04/16 15:10 10/04/16 15:55 Lactic Acid Level 3.7mmol/L (0.4-2.0) 3.7mmol/L (0.4-2.0) Clostridium difficile Toxin (PCR) Negative (Negative) Troponin I Quantitative 0.463ng/mL (0.000-0.055) Urine Collection Type Unknown Urine Color Yellow Urine Clarity Clear Urine pH 5.5 Urine Specific [place] 1.015 Urine Protein 30mg/dL (NEG-TRACE) Urine Glucose (UA) Negativemg/dL (NEG) Urine Ketones (Stick) Negativemg/dL (NEG) Urine Blood Small (NEG) Urine Nitrite Negative (NEG) Urine Bilirubin Negative (NEG) Urine Urobilinogen Dipstick 0.2mg/dL (0.2 mg/dL) Urine Leukocyte Esterase Negative (NEG) Urine RBC 0/HPF (0-2) Urine WBC 0/HPF (0-4) Urine Bacteria 0/HPF (0-FEW) Urine Yeast Present/HPF Test 10/04/16 16:00 10/04/16 20:30 10/05/16 05:40 10/05/16 06:30 Nasal Screen MRSA (PCR) Positive (Negative) Lactic Acid Level 1.4mmol/L (0.4-2.0) Troponin I Quantitative 0.506ng/mL (0.000-0.055) Sodium Level 144mmol/L (136-145) Potassium Level 2.8mmol/L (3.5-5.1) Chloride Level 111mmol/L (98-107) Carbon Dioxide Level 17mmol/L (21-32) Anion Gap 16 (6-14) Blood Urea Nitrogen 59mg/dL (7-20) Creatinine 2.2mg/dL (0.6-1.0) Estimated GFR (Cockcroft-Gault) 21.6 Glucose Level 112mg/dL (70-99) Calcium Level 5.7mg/dL (8.5-10.1) White Blood Count 0.1x10^3/uL (4.0-11.0) Red Blood Count 3.15x10^6/uL (3.50-5.40) Hemoglobin 9.3g/dL (12.0-15.5) Hematocrit 27.2% (36.0-47.0) Mean Corpuscular Volume 86fL (79-100) Mean Corpuscular Hemoglobin 29pg (25-35) Mean Corpuscular Hemoglobin Concent 34g/dL (31-37) Red Cell Distribution Width 21.6% (11.5-14.5) Platelet Count 11x10^3/uL (140-400) Neutrophils (%) (Auto) 18% (31-73) Lymphocytes (%) (Auto) 68% (24-48) Monocytes (%) (Auto) 12% (0-9) Eosinophils (%) (Auto) 3% (0-3) Basophils (%) (Auto) 0% (0-3) Neutrophils # (Auto) 0.0x10^3uL (1.8-7.7) Lymphocytes # (Auto) 0.1x10^3/uL (1.0-4.8) Monocytes # (Auto) 0.0x10^3/uL (0.0-1.1) Eosinophils # (Auto) 0.0x10^3/uL (0.0-0.7) Basophils # (Auto) 0.0x10^3/uL (0.0-0.2) Microbiology 10/04/16 Blood Culture - Preliminary, Resulted NO GROWTH AFTER 1 DAY Medications Current Medications Sodium Chloride 1,000 ml @ 1,000 mls/hr Q1H IV Last administered on 10/04/16 08:27; Start 10/04/16 at 09:15; Stop 10/04/16 at 10:14; Status DC Sodium Chloride 1,000 ml @ 1,000 mls/hr 1X ONCE IV Last administered on 08:58; Start 10/04/16 at 09:15; Stop 10/04/16 at 10:14; Status DC Meropenem 1 gm/ Sodium Chloride 100 ml @ 200 mls/hr Q12HR IV Last administered on 10/05/16 09:37; Start 10/04/16 at 21:00 Norepinephrine Bitartrate 8 mg/ Sodium Chloride 258 ml @ 1.93 mls/hr 1X ONCE IV ; Start 10/04/16 at 09:00; Stop 10/09/16 at 22:40; Status Cancel Norepinephrine Bitartrate 8 mg/ Sodium Chloride 258 ml @ 0 mls/hr 1X ONCE IV Last administered on 10/04/16 09:02; Start 10/04/16 at 09:00; Stop 10/04/16 at 09: 03; Status DC Meropenem 1 gm/ Sodium Chloride 100 ml @ 200 mls/hr 1X ONCE IV Last administered on 10/04/16 09:14; Start 10/04/16 at 09:15; Stop 10/04/16 at 09:44; Status DC Dextrose/Sodium Chloride (Iv D5% - 1/2 NS) 1,000 ml @ 125 mls/hr 1X ONCE IV Last administered on 10/04/16 12:57; Start 10/04/16 at 12:30; Stop 10/04/16 at 20: 29; Status DC Fentanyl Citrate (Fentanyl 2ml Vial) 25 mcg 1X ONCE IV Last administered on 13:06; Start 10/04/16 at 13:15; Stop 10/04/16 at 13:16; Status DC Ondansetron HCl (Zofran) 4 mg STK-MED ONCE .ROUTE ; Start 10/04/16 at 14:12; Stop 10/04/16 at 14:13; Status DC Ondansetron HCl 4 mg 4 mg PRN Q6HRS PRN IV NAUSEA/VOMITING Last administered on 10/05/16 09:36; Start 10/04/16 at 15:45 Sodium Chloride (Iv Sodium Chloride 0.9% 1000ml Bag) 1,000 ml @ 1,000 mls/hr 1X ONCE IV Last administered on 10/04/16 15:59; Start 10/04/16 at 16:15; Stop 10/04/16 at 17:14; Status DC Tbo-Filgrastim 300 mcg 300 mcg QHS SQ Last administered on 10/04/16 21:43; Start 10/04/16 at 21:00 Metronidazole 100 ml @ 100 mls/hr Q8HRS IV Last administered on 10/05/16 05:39 ; Start 10/04/16 at 22:00; Stop 10/05/16 at 07:43; Status DC Vancomycin HCl 1.25 gm/Sodium Chloride 250 ml @ 166.667 mls/hr 1X ONCE IV Last administered on 10/04/16 19:51; Start 10/04/16 at 17:00; Stop 10/04/16 at 18: 29; Status DC Micafungin Sodium/ Dextrose (Mycamine) 100 ml @ 100 mls/hr Q24H IV Last administered on 10/04/16 17:57; Start 10/04/16 at 17:00 Fentanyl Citrate 25 mcg 25 mcg PRN Q2HR PRN IV PAIN Last administered on 04:25; Start 10/04/16 at 16:45 Magnesium Sulfate/ Dextrose 100 ml @ 25 mls/hr 1X ONCE IV Last administered on 10/04/16 19:47; Start 10/04/16 at 16:30; Stop 10/04/16 at 20:29; Status DC Norepinephrine Bitartrate/Sodium Chloride (Levophed Vial/ Iv Sodium Chloride 0.9 % 250ml) 258 ml @ 0 mls/hr CONT PRN IV SEE I/O RECORD Last administered on 00:12; Start 10/04/16 at 18:15 Prochlorperazine Edisylate 10 mg 10 mg PRN Q6HRS PRN IV NAUSEA/VOMITING Last administered on 10/05/16 08:15; Start 10/04/16 at 19:30 Potassium Chloride 50 ml @ 50 mls/hr Q1H IV Last administered on 10/05/16 10:31 ; Start 10/05/16 at 07:00; Stop 10/05/16 at 09:59; Status DC Calcium Gluconate/ Sodium Chloride (Iv Sodium Chloride 0.9% 100ml) 120 ml @ 220 mls/hr 1X ONCE IV Last administered on 10/05/16 08:24; Start 10/05/16 at 07 :00; Stop 10/05/16 at 07:32; Status DC Vancomycin HCl 1 each 1 each PRN DAILY PRN MC SEE COMMENTS Last administered on 10/05/16 08:34; Start 10/05/16 at 07:45 Vancomycin HCl/ Sodium Chloride (Iv Sodium Chloride 0.9% 250ml) 250 ml @ 250 mls/hr Q24H IV ; Start 10/05/16 at 20:00 Vancomycin HCl 1 each 1X ONCE MC ; Start 10/06/16 at 19:30; Stop 10/06/16 at 19: 31 Active Scripts Active Reported Children's Aspirin (Aspirin) 81 Mg Tab.chew 81 Mg PO Protonix (Pantoprazole Sodium) 40 Mg Tablet.dr 1 Tab PO DAILY Orphenadrine Citrate 100 Mg Tablet.er 1 Tab PO BID Mirtazapine 15 Mg Tablet 1 Tab PO QHS Xanax (Alprazolam) 0.5 Mg Tablet 0.5 Mg PO PRN Q6HRS PRN Allopurinol 300 Mg Tablet 1 Tab PO DAILY Vitals/I & O Vital Sign - Last 24 Hours 10/04/16 10/04/16 10/04/16 10/04/16 11:45 12:00 12:15 15:10 Pulse 118 118 120 Resp 28 25 29 B/P 110/58 103/57 106/55 Pulse Ox 100 100 100 O2 Delivery Venturi Mask Venturi Mask Venturi Mask Nasal Cannula O2 Flow Rate 15 15 15 4.0 10/04/16 10/04/16 10/04/1610/04/17 15:15 15:26 15:30 15:45 Temp 98.5 98.5 98.5 98.5 Pulse 124 125 124 128 Resp 26 34 36 B/P 95/52 95/52 91/49 115/78 Pulse Ox 90 94 96 96 O2 Delivery Room Air Nasal Cannula Nasal Cannula Nasal Cannula O2 Flow Rate 2.0 4.0 4.0 10/04/16 10/04/16 10/04/16 10/04/16 16:00 16:15 16:30 16:39 Temp 97.8 97.8 Pulse 130 130 130 Resp 35 36 33 26 B/P 90/37 96/61 112/84 Pulse Ox 96 94 92 92 O2 Delivery Nasal Cannula Nasal Cannula Nasal Cannula Nasal Cannula O2 Flow Rate 4.0 4.0 4.0 4.0 10/04/16 10/04/16 10/04/16 10/04/16 16:45 17:00 17:15 17:15 Pulse 128 124 122 Resp 35 31 31 B/P 103/69 95/55 105/62 Pulse Ox 94 96 97 O2 Delivery Nasal Cannula Nasal Cannula Nasal Cannula Nasal Cannula O2 Flow Rate 4.0 4.0 4.0 10/04/16 10/04/16 10/04/16 10/04/16 17:30 17:45 18:00 18:15 Pulse 122 122 126 126 Resp 31 31 36 36 B/P 107/60 100/59 101/61 100/50 Pulse Ox 98 99 97 98 O2 Delivery Nasal Cannula Nasal Cannula Nasal Cannula Nasal Cannula O2 Flow Rate 4.0 4.0 4.0 4.0 10/04/16 10/04/16 10/04/16 10/04/16 18:30 19:00 19:27 19:30 Pulse 130 132 Resp 36 40 39 B/P 83/52 83/52 Pulse Ox 98 97 91 O2 Delivery Nasal Cannula Nasal Cannula Nasal Cannula O2 Flow Rate 4.0 4.0 4.0 10/04/16 10/04/16 10/04/16 10/04/16 20:00 21:00 21:15 21:30 Temp 100.5 100.5 Pulse 128 128 Resp 28 29 B/P 101/46 76/48 95/45 81/52 Pulse Ox 98 100 O2 Delivery Nasal Cannula Nasal Cannula O2 Flow Rate 4.0 4.0 10/04/16 10/04/16 10/04/16 10/04/16 21:45 22:00 22:03 22:15 Pulse 126 Resp 28 B/P 83/46 83/44 98/49 Pulse Ox 100 O2 Delivery Nasal Cannula O2 Flow Rate 4.0 10/04/16 10/04/16 10/04/16 10/04/16 22:30 22:34 22:45 23:00 Pulse 122 122 121 Resp 28 34 B/P 108/56 107/61 117/62 Pulse Ox 100 100 O2 Delivery Nasal Cannula O2 Flow Rate 4.0 4.0 10/04/16 10/05/16 10/05/16 10/05/16 23:59 00:00 00:16 01:00 Temp 100.7 100.7 Pulse 121 116 Resp 26 37 22 B/P 116/52 116/59 Pulse Ox 100 100 100 O2 Delivery Nasal Cannula Nasal Cannula Nasal Cannula Nasal Cannula O2 Flow Rate 4.0 4.0 4.0 4.0 10/05/16 10/05/16 10/05/16 10/05/16 02:00 02:45 03:00 03:15 Pulse 120 123 125 Resp 25 27 28 B/P 119/54 123/62 117/61 116/60 Pulse Ox 100 100 100 O2 Delivery Nasal Cannula Nasal Cannula Nasal Cannula O2 Flow Rate 4.0 4.0 4.0 10/05/16 10/05/16 10/05/16 10/05/16 04:00 04:15 04:25 04:30 Temp 100.6 100.6 Pulse 122 Resp 30 28 B/P 118/57 123/69 Pulse Ox 100 100 O2 Delivery Nasal Cannula Nasal Cannula Nasal Cannula O2 Flow Rate 4.0 4.0 4.0 10/05/16 10/05/16 10/05/16 10/05/16 04:45 06:00 07:00 08:00 Temp 97.7 97.7 Pulse 123 126 125 Resp 27 30 34 B/P 118/64 93/65 109/66 99/59 Pulse Ox 100 100 99 O2 Delivery Room Air Room Air Room Air 10/05/16 10/05/16 10/05/16 10/05/16 08:00 09:00 10:00 11:00 Pulse 130 134 131 Resp 25 32 32 B/P 104/57 107/56 94/56 Pulse Ox 98 100 99 O2 Delivery Room Air Room Air Room Air Room Air Intake and Output 10/04/16 10/04/16 10/05/16 15:00 23:00 07:00 Intake Total 2100 ml 1634 ml 897 ml Output Total 950 ml 1060 ml Balance 2100 ml 684 ml -163 ml Nutrition Consultation Dietary Evaluation: Recommendations by RD: Increase Calorie Intake, Protein supplementation, PPN/ TPN, Add supplement feedings Comments: Pt has moderate malnutrition. Son indicates poor intake over the past 10 weeks. Nausea/taste change contributing to poor appetite. Trouble keeping meeds/food down. Daily intake of 32 oz fluid max. Recent wt loss of 13% body wt. -Rec. PPN with Clinimix at 80 ml/hr to meet short term nutrition needs -Rec. boost plus or boost breeze supplements when diet is advanced -Encourage snacks on unit as tolerated Expected Outcomes/Goals: meet 75% estimated nutrition needs Interpretation of weight loss: >5% in 1 month Malnutrition Findings: Food and Nutrition Intake (Mod: <75% est energy req 7days Reduced Advertising Solicitor Strength: N/A Malnutrition related to morbid: No Weight Status: Appropriate Fluid Accumulation (N/A): N/A SHAHRAM WILSON III DO Oct 05, 2016 11:59
--- NOTE | 2016-10-05 12:51 | CONS ---
DATE OF CONSULTATION: 10/04/2016 REFERRING PROVIDER: Dr. Go. REASON FOR CONSULTATION: Small cell lung cancer. HISTORY OF PRESENT ILLNESS: The patient is a 76-year-old female treated by Dr. Harris Flynn for extensive stage small cell lung cancer. She has had complications tolerating the chemotherapy and was receiving IV fluids consistently in his clinic. She just completed cycle #3 of cisplatin and etoposide on 09/15/2016. She was seen in clinic on 10/02/2016 and her ANC was 2.2, hemoglobin 11.1, platelets 102, and creatinine was 1.1. Her son reports that she has had ongoing issues with fatigue, dehydration, diarrhea, poor performance status for quite some time. She has not been able to maintain her oral intake and had multiple episodes of diarrhea leading to a syncopal episode, thus prompting her ER visit. She has not had any fevers. She did have a CT chest completed on 09/21/2016 revealing a positive treatment response with decrease in the size of previously noted lesions. She had a probable segmental right lower lobe pulmonary embolism. However, in review of Dr. Flynn's notes due to her overall decreased performance status and the smaller segmental nature of probable thrombus, he elected to initiate aspirin rather than full dose anticoagulation, which would likely be poorly tolerated. I have reviewed oncology notes, labs, and imaging for the visit today; now in the Emergency Room, her ANC is 0.0, platelets 47, and creatinine up to 2.9. Her liver enzymes are also elevated and lactic acid is elevated at 3.7. CT head was negative. Chest x-ray showed atelectasis. PAST MEDICAL HISTORY: Hypertension, hyperlipidemia, small cell lung cancer, Green's, and poor mobility. PAST SURGICAL HISTORY: Hysterectomy. FAMILY HISTORY: Dad had a heart attack. SOCIAL HISTORY: She lives with her daughter. She has a very supportive family in the area. Denies any tobacco use. ALLERGIES: COLACE, THIAMINE, ROSUVASTATIN, LIPITOR, PENICILLIN, SULFA, AND MORPHINE. CURRENT MEDICATIONS: Meropenem, Zofran, and normal saline. REVIEW OF SYSTEMS: Twelve-point review of systems attempted with the help of her son. The patient herself is too lethargic to participate. It sounds like she has had some increasing fatigue, chills but no fevers, diarrhea, decreased mobility, and depression. Otherwise, unremarkable. PHYSICAL EXAMINATION: VITAL SIGNS: Temperature 98.5, pulse 130, respiratory rate 29, blood pressure 95/52, and 94% O2 on 2 liters. GENERAL: She is lethargic, does not respond to voice or touch. She appears to be chilled, although is afebrile. HEENT: Eyes remain closed. Mucous membranes are very dry. CARDIOVASCULAR: Tachycardic, but regular in rhythm. LUNGS: Clear to auscultation bilaterally. ABDOMEN: Soft, nontender. EXTREMITIES: Cool. No edema. NEUROLOGIC: Cannot assess. SKIN: Pallor is present. IMAGING AND LABORATORY DATA: CT, chest x-ray and labs reviewed as above. Outside CT, labs and oncology notes reviewed as above. ASSESSMENT AND PLAN: The patient is a 76-year-old female with the following medical problems: 1. Neutropenic fever and pancytopenia related to recent chemotherapy, now with severe sepsis and ANC 0. I have started her on Neupogen. She will be on broad- spectrum antibiotics. She should have urine and blood cultures as well. Chest x-ray thus far has been nonrevealing. She will be tested for Clostridium difficile. Influenza testing was negative. 2. Extensive stage small cell lung cancer treated by Dr. Flynn with her third cycle of cisplatin and etoposide given on 09/25/2016, scans after cycle #2 did show an improved response. However, she continues tolerating treatment poorly. Per her son, she is out of network here at [place] and is planning to transfer to [facility] where she can be seen by Dr. Flynn as well. I will defer further discussions of goals of care to Dr. Flynn. 3. Diarrhea, checking for Clostridium difficile. Thank you for alerting us of her admission. I have discussed her status with her oncologist, Dr. Flynn and also with her Intensive Care Unit nurse. PEÑA BATISTA DO DR: YOLI/whitney JOB#: [id number] / [id number] LANCED
--- NOTE | 2016-10-05 15:02 | PDOC ---
CARDIO Progress Notes Date and Time Date of Service 10/05/16 Time of Evaluation 1340 Subjective Subjective: Other (resting comfortably) Vitals Vitals Vital Signs Date Time Temp Pulse Resp B/P Pulse Ox O2 Delivery O2 Flow Rate FiO2 10/05/16 12:00 100.1 132 30 93/48 98 Room Air 100.1 10/05/16 04:25 4.0 Weight Weight [ ] Input and Output Intake and Output Intake and Output 10/05/16 07:00 Intake Total 4631 ml Output Total 2009 ml Balance 2621 ml IV Total 4631 ml Output Urine Total 2010 ml Laboratory Labs Laboratory Tests Test 10/04/16 15:10 10/04/16 15:55 10/04/16 16:00 10/04/16 20:30 Lactic Acid Level 3.7mmol/L (0.4-2.0) 1.4mmol/L (0.4-2.0) Troponin I Quantitative 0.463ng/mL (0.000-0.055) 0.506ng/mL (0.000-0.055) Urine Collection Type Unknown Urine Color Yellow Urine Clarity Clear Urine pH 5.5 Urine Specific [place] 1.015 Urine Protein 30mg/dL (NEG-TRACE) Urine Glucose (UA) Negativemg/dL (NEG) Urine Ketones (Stick) Negativemg/dL (NEG) Urine Blood Small (NEG) Urine Nitrite Negative (NEG) Urine Bilirubin Negative (NEG) Urine Urobilinogen Dipstick 0.2mg/dL (0.2 mg/dL) Urine Leukocyte Esterase Negative (NEG) Urine RBC 0/HPF (0-2) Urine WBC 0/HPF (0-4) Urine Bacteria 0/HPF (0-FEW) Urine Yeast Present/HPF Nasal Screen MRSA (PCR) Positive (Negative) Test 10/05/16 05:40 10/05/16 06:30 Sodium Level 144mmol/L (136-145) Potassium Level 2.8mmol/L (3.5-5.1) Chloride Level 111mmol/L (98-107) Carbon Dioxide Level 17mmol/L (21-32) Anion Gap 16 (6-14) Blood Urea Nitrogen 59mg/dL (7-20) Creatinine 2.2mg/dL (0.6-1.0) Estimated GFR (Cockcroft-Gault) 21.6 Glucose Level 112mg/dL (70-99) Calcium Level 5.7mg/dL (8.5-10.1) White Blood Count 0.1x10^3/uL (4.0-11.0) Red Blood Count 3.15x10^6/uL (3.50-5.40) Hemoglobin 9.3g/dL (12.0-15.5) Hematocrit 27.2% (36.0-47.0) Mean Corpuscular Volume 86fL (79-100) Mean Corpuscular Hemoglobin 29pg (25-35) Mean Corpuscular Hemoglobin Concent 34g/dL (31-37) Red Cell Distribution Width 21.6% (11.5-14.5) Platelet Count 11x10^3/uL (140-400) Neutrophils (%) (Auto) 18% (31-73) Lymphocytes (%) (Auto) 68% (24-48) Monocytes (%) (Auto) 12% (0-9) Eosinophils (%) (Auto) 3% (0-3) Basophils (%) (Auto) 0% (0-3) Neutrophils # (Auto) 0.0x10^3uL (1.8-7.7) Lymphocytes # (Auto) 0.1x10^3/uL (1.0-4.8) Monocytes # (Auto) 0.0x10^3/uL (0.0-1.1) Eosinophils # (Auto) 0.0x10^3/uL (0.0-0.7) Basophils # (Auto) 0.0x10^3/uL (0.0-0.2) Microbiology Micro Microbiology 10/04/16 Blood Culture - Preliminary, Resulted NO GROWTH AFTER 1 DAY Physical Exam HEENT: Neck Supple W Full Motion Chest: Symmetric LUNGS: Clear to Auscultation Heart: S1S2, other (tele ST) Abdomen: Soft N/T, Other Extremities: No Edema, No Calf Tenderness Neurology: other (lethargic ) Assessment Assessment 1. Sepsis, POA 2. Pancytopenia 3. Acute respiratory failure 4. Encephalopathy 5. EPHRAMI: significant volume depletion 6. Stage 4 lung CA with chemotherapy with noted Metastasis 7. Elevated troponin; suspect demand mediated with above concurrent acute conditions 8. Elevated pro NT BNP: related to above. Clinically no acute CHF. No cephalization/effusion/nor peripheral edema 9. lyte abnormalities 10. Deconditioning/debility 11. Sinus tachycardia: reactive Recommendations K replace. Monitor lytes IVF's Pressor support as warranted. Will defer obtaining echo as patient is to transfer to [facility] later today Continue supportive care from CV standpoint DORINA RODRIGUEZ APRN Oct 05, 2016 15:02
[2016-10-05] MEDS: MICAFUNGIN 100 MG in IV DEXTROSE 5% 100 ML IV SCH (16:40)
[2016-10-05] MEDS ORDERED: VANCOMYCIN 1 GM in IV NORMAL SALINE 250ML 250 ML IV SCH (20:00)
--- NOTE | 2016-10-06 06:36 | CONS ---
DATE OF CONSULTATION: 10/05/2016 PATIENT'S ROOM: ICU 12. REQUESTING PHYSICIAN: Dr. Go. REASON FOR CONSULTATION: Sepsis, lung cancer with chemo, leukopenia. HISTORY OF PRESENT ILLNESS: The patient is a 76-year-old female who was admitted to [facility] in 07/2016 with complaints of severe back pain. Workup at that time showed widely metastatic disease, and she has since been diagnosed with stage IV lung cancer. She has undergone previous vertebroplasties of T12 and L1. She had received her last chemotherapy on 09/25/2016. She was brought to [facility] on 10/04/2016 secondary to mental status change accompanied with nausea, vomiting and diarrhea. She had initially been experiencing some constipation and received some MiraLax, but then the diarrhea increased. She became quickly lethargic and unresponsive when she was going to the toilet, and EMS was called, and she was found unresponsive. She was placed on 15 liters of oxygen. On arrival, her temperature is 97.9 axillary, blood pressure was 76/48. White blood cell count was 0.8, platelets are 47 with the hemoglobin of 11.2. Additionally, the creatinine was 2.9, AST was elevated with a normal lipase. Lactic acid was 13.2. She has since been admitted to the Intensive Care Unit. She was given a dose of meropenem, and I was consulted. Yesterday, there is question of whether she had some exposure to C. diff. by somebody in the family. I added IV metronidazole, gave her a single dose of vancomycin with her renal failure, and micafungin. Currently, the patient is lying in bed. She feels somewhat better, but she is complaining of some nausea and very dry throat. She denies any falls or trauma. PAST MEDICAL HISTORY: Positive for hypertension, hyperlipidemia, stage IV metastatic lung cancer status post chemotherapy, history of compression fracture status post vertebroplasty. Additionally, she has a Port-A-Cath placed in her right chest, some anxiety, and gastroesophageal reflux disease. REVIEW OF SYSTEMS: Otherwise negative except mentioned above. ALLERGIES: Listed as PENICILLIN, SULFA causing hives. SOCIAL HISTORY: No tobacco, alcohol or drug use. She lives with her family. Again, there is some questionable history of C. diff. exposure. FAMILY HISTORY: Positive for coronary artery disease. CURRENT MEDICATIONS: Include meropenem 1 gram q. 12, micafungin, metronidazole 500 q. 8. She did receive a dose of vancomycin yesterday. She is on Levophed 10. She is on Granix. Other meds are available and reviewed in the chart. PHYSICAL EXAMINATION: VITAL SIGNS: T-max has been 100.7 axillary, currently 100.6 axillary, pulse 123, respirations 27, blood pressure 93/65, satting 100% on room air. CONSTITUTIONAL: She looks tired, but she is no acute distress. HEENT: Pupils are equal and reactive. She has normal conjunctivae. Oral cavity: Oropharynx is clear and dry. NECK: Supple, no JVD. Port-A-Cath without signs of complications in the right chest. LUNGS: Decreased in the bases. HEART: S1, S2. No murmur. ABDOMEN: Mildly distended, soft. No rebound. EXTREMITIES: No clubbing, cyanosis or gross edema. Yeung is in place. SKIN: Without signs of generalized rash. Warm to touch. NEUROLOGIC: She answered questions appropriately, moved all extremities. PSYCHIATRIC: Affect is somewhat flat. LABORATORY DATA: White count 0.1, hemoglobin 9.3, platelets of 11, neutrophils 18, lymphs 68, monos 12, creatinine of 2.2. Lactic acid improved to 1.4, glucose is 112. Troponin mildly elevated at 0.506. Urinalysis was clean. Influenza screen was negative. C. diff. test was negative. MRSA screen is positive. CT scan of the head was negative. Chest x-ray, had some mild atelectasis. IMPRESSION: 1. Sepsis present on admission, currently on 10 of Levophed, the lactic acid has improved. 2. Fever, questionable infection versus medications. 3. Pancytopenia on Granix. 4. Acute kidney injury has somewhat improved. 5. Stage IV lung cancer, status post chemo on the . 6. Questionable exposure to C. diff. but her C. diff. is negative here. 7. PENICILLIN and SULFA ALLERGY that causes hives, tolerating the meropenem. 8. MRSA screen positive. RECOMMENDATIONS: Again, micafungin, vancomycin and Flagyl were added on 10/04/2016. For now, we will continue the meropenem. We will re-dose her vancomycin given the renal function improvement, would discontinue her Flagyl today with a negative C. diff. She is currently complaining of some nausea as well. We will follow up on labs in the morning if she continues to be here; otherwise, we will follow up on her culture results as she is awaiting transfer to [facility]. I did review some [facility] medical records as well as her records here. She is critically ill. I spent 35 minutes of critical care time. Thank you for allowing me to participate in this patient's care. If you have any questions, please do not hesitate to contact me. SALMA RADFORD MD DR: LISET/whitney JOB#: [id number] / [id number]
== END 2016-10-05 20:40 | disposition short-term general hospital (02) | DRG 871 ==
LOC: ER 08:27 → 1 WEST ICU 13:15
PROVIDERS: ADMIT Internal Medicine; ATTEND Internal Medicine
DX: A41.9 Sepsis, unspecified organism (principal); D61.810 Antineoplastic chemotherapy induced pancytopenia; I50.43 Acute on chronic combined systolic (congestive) and diastolic (congestive) heart failure; J96.00 Acute respiratory failure, unspecified whether with hypoxia or hypercapnia; C34.90 Malignant neoplasm of unspecified part of unspecified bronchus or lung; D61.818 Other pancytopenia; E46 Unspecified protein-calorie malnutrition; G93.1 Anoxic brain damage, not elsewhere classified; I42.9 Cardiomyopathy, unspecified; J98.11 Atelectasis; M48.54XA Collapsed vertebra, not elsewhere classified, thoracic region, initial encounter for fracture; N17.9 Acute kidney failure, unspecified; E78.5 Hyperlipidemia, unspecified; E83.42 Hypomagnesemia; E86.0 Dehydration; E86.1 Hypovolemia; I11.0 Hypertensive heart disease with heart failure; K21.9 Gastro-esophageal reflux disease without esophagitis; K22.70 Barrett's esophagus without dysplasia; K59.00 Constipation, unspecified; F41.9 Anxiety disorder, unspecified; M19.90 Unspecified osteoarthritis, unspecified site; R62.7 Adult failure to thrive; T45.1X5A Adverse effect of antineoplastic and immunosuppressive drugs, initial encounter; R50.81 Fever presenting with conditions classified elsewhere; R65.20 Severe sepsis without septic shock; Z66 Do not resuscitate; Z82.49 Family history of ischemic heart disease and other diseases of the circulatory system; Z83.3 Family history of diabetes mellitus; Z85.118 Personal history of other malignant neoplasm of bronchus and lung; Z87.891 Personal history of nicotine dependence; Z88.2 Allergy status to sulfonamides; Z92.21 Personal history of antineoplastic chemotherapy; Z88.5 Allergy status to narcotic agent; Z88.0 Allergy status to penicillin; Z88.8 Allergy status to other drugs, medicaments and biological substances
CPT/HCPCS: 36415; 36600; 70450; 71010; 80048; 80076; 81001; 82553; 82805; 83605; 83690; 83735; 83880; 84443; 84484; 85027; 85610; 86850; 86900; 86901; 87040; 87205; 87324; 87641; 87804; 93005; 96361; 96365; 96375; J0610; J0780; J2185; J2248; J2405; J3010; J3370; J3475; J3480; J3490; J7030; J7050; 99291-25; J1442